=== PATIENT | male | born 1955 | race Caucasian/White ===

== ENCOUNTER 2017-01-24 22:00 | Emergency (ER) | payer MEDICAID, OTHER ==
[~2017-01-24] VITALS: Ht 182.9 cm; Wt 70.3 kg
[2017-01-24 22:00] VITALS: BP_SYST 150
[~2017-01-24 22:00] MED LIST: ACET-2165 GT; ALLO300T2 GT; AMAN100C16 GT; ASA81 GT; BACL10TA GT; COLL100 GT; DIPH25CA83 PO; LEVE500T13 GT; METO25TA6 GT; NA P118E RC; OMEP40CA33 GT
[2017-01-24] MEDS ORDERED: GASTROGRAFIN 120 ML ONE (22:39)
[2017-01-24] MEDS ORDERED: EPINEPHrine 1 MG/ML AMP ONE (22:39)
[2017-01-24 23:30] VITALS: BP_SYST 148
== END 2017-01-24 23:30 | disposition home or self-care (01) ==
LOC: SED 22:00
DX: Z43.1 Encounter for attention to gastrostomy (principal); J45.909 Unspecified asthma, uncomplicated; I10 Essential (primary) hypertension; M10.9 Gout, unspecified; Z86.73 Personal history of transient ischemic attack (TIA), and cerebral infarction without residual deficits; Z79.82 Long term (current) use of aspirin; Z79.899 Other long term (current) drug therapy
CPT/HCPCS: 43760; 74240; 99284; Q9963; J0171

== ENCOUNTER 2017-01-27 10:22 | Inpatient (IN) | payer OTHER ==
[~2017-01-27] VITALS: Ht 177.8 cm; Wt 95.3 kg
[~2017-01-27 10:22] MED LIST changes: +GLYCOPYRROLATE 0.2 MG/ML VIAL IJ ONE; +MIDAZOLAM HCL 5 MG/5 ML VIAL IVP ONE; +NEOSTIGMINE METHYLSULFATE 1 MG/ML, 10 ML VIAL IVP ONE; +ONDANSETRON HCL 4 MG/2 ML VIAL IVP ONE; +PROPOFOL 200MG/ 20ML VIAL (DIPRIVAN) IV ONE; +ROCURONIUM BROMIDE 10 MG/ML (ZEMURON) IV ONE; +SEVOFLURANE 15 MIN GAS INH ONE; +fentaNYL CITRATE/PF 100 MCG/2 ML AMP IVP ONE
[2017-01-27 10:25] VITALS: BP_SYST 153
[2017-01-27] MEDS ORDERED: ASCO500T20 PO (11:04)
[2017-01-27] MEDS ORDERED: MULT PO (11:04)
[2017-01-27] MEDS ORDERED: CLON0.5T4 PO (11:04)
[2017-01-27] MEDS ORDERED: PROT946L PO (11:04)
[2017-01-27] MEDS ORDERED: PANTOPRAZOLE SODIUM 40 MG in NS 50 ML IV SCH (11:15)
[2017-01-27] MEDS ORDERED: PANTOPRAZOLE SODIUM 80 MG in NS 100 ML IV ONE (11:15)
[2017-01-27] MEDS ORDERED: ONDANSETRON HCL 4 MG/2 ML VIAL IVP ONE (11:15)
[2017-01-27] MEDS ORDERED: NACL 0.9% 1,000 ML IV ONE ×3 (11:15→14:00)
[2017-01-27 11:39] LABS: CALCIUM 9.8 mg/dL (8.4-11.0); CREATININE 0.65 mg/dL (0.55-1.30); POTASSIUM 3.6 mmol/L (3.5-5.1)
[2017-01-27 11:41] LABS: BASOPHILS # (AUTO) 0.1 K/uL (0.0-0.2); BASOPHILS % (AUTO) 0.5 % (0.0-2.0); HEMATOCRIT 56.3 % (36-54); HEMOGLOBIN 17.9 g/dL (14.0-18.0); LYMPHOCYTES # (AUTO) 1.1 K/uL (1.0-5.5); LYMPHOCYTES % (AUTO) 5.4 % (20.5-51.5); MEAN CORPUSCULAR HEMOGLOBIN 29 pg (27-31); MEAN CORPUSCULAR HGB CONC 32 % (32-36); MEAN CORPUSCULAR VOLUME 92 fL (79.0-98.0); MONOCYTES % (AUTO) 4.7 % (1.7-9.3); NEUTROPHILS # (AUTO) 18.8 K/uL (1.8-7.7); NEUTROPHILS % (AUTO) 89.4 % (40.0-70.0); PLATELET COUNT (AUTO) 320 K/uL (130-430); RED BLOOD CELL COUNT(AUTO) 6.11 MIL/uL (4.2-6.2); RED CELL DISTRIBUTION WIDTH 15.1 % (9.0-15.0)
[2017-01-27 11:43] LABS: ALBUMIN 3.7 g/dL (3.4-4.8); INR 1.3 (0.80-1.20); TOTAL BILIRUBIN 0.4 mg/dL (0.0-1.0)
[2017-01-27] MEDS ORDERED: PIPERACILLIN/TAZO 3.375 GM in NS 50 ML IV ONE (14:00)
[2017-01-27 14:33] LABS: BILIRUBIN,URINE NEGATIVE (NEGATIVE); BLOOD, URINE NEGATIVE (NEGATIVE); CLARITY/URINE CLEAR (CLEAR); COLOR,URINE YELLOW (YELLOW); GLUCOSE,URINE NEGATIVE (NEGATIVE); KETONES,URINE NEGATIVE (NEGATIVE); LEUKOCYTE ESTERASE ,URINE NEGATIVE (NEGATIVE); NITRITE, URINE NEGATIVE (NEGATIVE); PROTEIN URINE TRACE (NEGATIVE)
[2017-01-27 14:44] LABS: BACTERIA,URINE FEW /HPF (None Seen); MUCUS,URINE 1+ /LPF (None Seen); RBC,URINE 0-3 /HPF (0-3); WBC,URINE 0-3 /HPF (0-3)
[2017-01-27] MEDS ORDERED: LORazepam 2 MG/ML VIAL IVP PRN (15:45)
[2017-01-27] MEDS ORDERED: ONDANSETRON HCL 4 MG/2 ML VIAL IVP PRN (15:45)
[2017-01-27] MEDS ORDERED: PIPERACILLIN/TAZOBACTAM 3.375 GM/VIAL (ZOSYN) IV ONE (15:45)
[2017-01-27] MEDS ORDERED: LevALBUTEROL HCL 1.25 MG/0.5 ML *CONC.* VIAL.NEB (XOPENEX CONC.) INH PRN (16:00)
[2017-01-27] MEDS ORDERED: LevALBUTEROL HCL 1.25 MG/0.5 ML *CONC.* VIAL.NEB (XOPENEX CONC.) INH ONE (16:30)
[2017-01-27 16:47] VITALS: BP_SYST 119
[2017-01-27] MEDS: POTASSIUM CHLORIDE 20 MEQ in D5/0.45 NS 1,000 ML IV SCH (17:00)
[2017-01-27 17:33] VITALS: BP_SYST 119
[2017-01-27 18:03] VITALS: BP_SYST 119
[2017-01-27] MEDS: metroNIDAZOLE 500 mg/NS 100 ML IV SCH (18:12)
[2017-01-27] MEDS: PIPERACILLIN/TAZO 3.375/DEX-IS 50 ML IV SCH (19:04)
[2017-01-27 20:00] VITALS: BP_SYST 123
[2017-01-27] MEDS: levETIRAcetam 500 MG in NS 100 ML IV SCH (21:44)
[2017-01-27] MEDS: PANTOPRAZOLE SODIUM 40 MG/VIAL (PROTONIX) IVP SCH (21:45)
[2017-01-27] MEDS: LevALBUTEROL HCL 1.25 MG/0.5 ML *CONC.* VIAL.NEB (XOPENEX CONC.) INH SCH (23:17)
[2017-01-28 00:05] VITALS: BP_SYST 140
[2017-01-28] MEDS: PIPERACILLIN/TAZO 3.375/DEX-IS 50 ML IV SCH ×4 (00:39→18:36)
[2017-01-28] MEDS: metroNIDAZOLE 500 mg/NS 100 ML IV SCH ×3 (01:44→17:21)
[2017-01-28] MEDS: POTASSIUM CHLORIDE 20 MEQ in D5/0.45 NS 1,000 ML IV SCH ×2 (02:06→12:34)
[2017-01-28 04:25] VITALS: BP_SYST 129
[2017-01-28 07:02] LABS: CALCIUM 8.8 mg/dL (8.4-11.0); CREATININE 0.78 mg/dL (0.55-1.30); POTASSIUM 3.5 mmol/L (3.5-5.1)
[2017-01-28 07:04] LABS: BASOPHILS % (AUTO) 0.4 % (0.0-2.0); EOSINOPHILS # (AUTO) 0.2 K/uL (0.0-0.4); EOSINOPHILS % (AUTO) 1.4 % (0.0-4.0); HEMATOCRIT 47.8 % (36-54); HEMOGLOBIN 14.7 g/dL (14.0-18.0); LYMPHOCYTES # (AUTO) 0.5 K/uL (1.0-5.5); LYMPHOCYTES % (AUTO) 4.6 % (20.5-51.5); MEAN CORPUSCULAR HEMOGLOBIN 29 pg (27-31); MEAN CORPUSCULAR HGB CONC 31 % (32-36); MEAN CORPUSCULAR VOLUME 93 fL (79.0-98.0); MONOCYTES # (AUTO) 0.7 K/uL (0.0-1.0); MONOCYTES % (AUTO) 5.8 % (1.7-9.3); NEUTROPHILS % (AUTO) 87.8 % (40.0-70.0); PLATELET COUNT (AUTO) 218 K/uL (130-430); RED BLOOD CELL COUNT(AUTO) 5.13 MIL/uL (4.2-6.2); RED CELL DISTRIBUTION WIDTH 15.1 % (9.0-15.0)
[2017-01-28 07:11] LABS: WHITE BLOOD COUNT (AUTO) 11.4 K/uL (4.8-10.8)
[2017-01-28] MEDS: LevALBUTEROL HCL 1.25 MG/0.5 ML *CONC.* VIAL.NEB (XOPENEX CONC.) INH SCH ×3 (07:20→23:37)
[2017-01-28 08:00] VITALS: BP_SYST 99
[2017-01-28] MEDS: levETIRAcetam 500 MG in NS 100 ML IV SCH ×2 (08:20→20:53)
[2017-01-28] MEDS: PANTOPRAZOLE SODIUM 40 MG/VIAL (PROTONIX) IVP SCH ×2 (08:21→20:53)
[2017-01-28 11:56] VITALS: BP_SYST 106
[2017-01-28 16:37] VITALS: BP_SYST 121
[2017-01-28 20:00] VITALS: BP_SYST 108
[2017-01-29] VITALS: BP_SYST 109
[2017-01-29] MEDS: PIPERACILLIN/TAZO 3.375/DEX-IS 50 ML IV SCH ×5 (00:57→23:48)
[2017-01-29] MEDS: metroNIDAZOLE 500 mg/NS 100 ML IV SCH ×3 (01:51→17:23)
[2017-01-29 04:29] VITALS: BP_SYST 104
[2017-01-29] MEDS: POTASSIUM CHLORIDE 20 MEQ in D5/0.45 NS 1,000 ML IV SCH ×2 (05:44→22:20)
[2017-01-29] MEDS: LevALBUTEROL HCL 1.25 MG/0.5 ML *CONC.* VIAL.NEB (XOPENEX CONC.) INH SCH ×3 (07:17→23:03)
[2017-01-29 08:20] VITALS: BP_SYST 115
[2017-01-29] MEDS: PANTOPRAZOLE SODIUM 40 MG/VIAL (PROTONIX) IVP SCH ×2 (08:24→21:34)
[2017-01-29] MEDS: levETIRAcetam 500 MG in NS 100 ML IV SCH ×2 (08:24→21:34)
[2017-01-29 11:32] VITALS: BP_SYST 131
[2017-01-29 15:27] VITALS: BP_SYST 131
[2017-01-29 20:00] VITALS: BP_SYST 134
[2017-01-29] MEDS: MUPIROCIN 2% TOPICAL OINTMENT 22 GM TP SCH (21:34)
[2017-01-30] VITALS (7 sets, daily range): BP systolic 94–147
[2017-01-30] MEDS: metroNIDAZOLE 500 mg/NS 100 ML IV SCH ×3 (00:55→16:58)
[2017-01-30] MEDS: PIPERACILLIN/TAZO 3.375/DEX-IS 50 ML IV SCH ×3 (05:47→17:00)
[2017-01-30 06:14] LABS: BASOPHILS # (AUTO) 0.1 K/uL (0.0-0.2); BASOPHILS % (AUTO) 1.8 % (0.0-2.0); EOSINOPHILS # (AUTO) 0.4 K/uL (0.0-0.4); EOSINOPHILS % (AUTO) 7.5 % (0.0-4.0); HEMATOCRIT 40.9 % (36-54); HEMOGLOBIN 13.2 g/dL (14.0-18.0); LYMPHOCYTES # (AUTO) 0.9 K/uL (1.0-5.5); LYMPHOCYTES % (AUTO) 14.9 % (20.5-51.5); MEAN CORPUSCULAR HEMOGLOBIN 30 pg (27-31); MEAN CORPUSCULAR HGB CONC 32 % (32-36); MEAN CORPUSCULAR VOLUME 92 fL (79.0-98.0); MONOCYTES # (AUTO) 0.7 K/uL (0.0-1.0); MONOCYTES % (AUTO) 11.9 % (1.7-9.3); NEUTROPHILS # (AUTO) 3.7 K/uL (1.8-7.7); NEUTROPHILS % (AUTO) 63.9 % (40.0-70.0); PLATELET COUNT (AUTO) 171 K/uL (130-430); RED BLOOD CELL COUNT(AUTO) 4.45 MIL/uL (4.2-6.2); RED CELL DISTRIBUTION WIDTH 15.3 % (9.0-15.0); WHITE BLOOD COUNT (AUTO) 5.8 K/uL (4.8-10.8)
[2017-01-30 06:21] LABS: CALCIUM 8.3 mg/dL (8.4-11.0); CREATININE 0.6 mg/dL (0.55-1.30); POTASSIUM 3.6 mmol/L (3.5-5.1)
[2017-01-30] MEDS: LevALBUTEROL HCL 1.25 MG/0.5 ML *CONC.* VIAL.NEB (XOPENEX CONC.) INH SCH ×2 (07:34→15:36)
[2017-01-30] MEDS: levETIRAcetam 500 MG in NS 100 ML IV SCH ×2 (09:17→21:07)
[2017-01-30] MEDS: PANTOPRAZOLE SODIUM 40 MG/VIAL (PROTONIX) IVP SCH ×2 (09:19→21:07)
[2017-01-30] MEDS: MUPIROCIN 2% TOPICAL OINTMENT 22 GM TP SCH ×2 (09:20→21:06)
[2017-01-30] MEDS: POTASSIUM CHLORIDE 20 MEQ in D5/0.45 NS 1,000 ML IV SCH (12:58)
[2017-01-31] MEDS: LevALBUTEROL HCL 1.25 MG/0.5 ML *CONC.* VIAL.NEB (XOPENEX CONC.) INH SCH ×4 (00:02→23:35)
[2017-01-31 00:12] VITALS: BP_SYST 126
[2017-01-31] MEDS: PIPERACILLIN/TAZO 3.375/DEX-IS 50 ML IV SCH ×4 (00:19→18:06)
[2017-01-31] MEDS: metroNIDAZOLE 500 mg/NS 100 ML IV SCH ×3 (01:03→16:58)
[2017-01-31 03:26] VITALS: BP_SYST 125
[2017-01-31] MEDS: POTASSIUM CHLORIDE 20 MEQ in D5/0.45 NS 1,000 ML IV SCH ×2 (05:30→18:05)
[2017-01-31 06:38] LABS: ALBUMIN 2.6 g/dL (3.4-4.8); CALCIUM 8.4 mg/dL (8.4-11.0); CREATININE 0.71 mg/dL (0.55-1.30); TOTAL BILIRUBIN 0.7 mg/dL (0.0-1.0)
[2017-01-31 07:04] LABS: BASOPHILS % (AUTO) 0.5 % (0.0-2.0); EOSINOPHILS # (AUTO) 0.4 K/uL (0.0-0.4); EOSINOPHILS % (AUTO) 7.2 % (0.0-4.0); HEMOGLOBIN 13.3 g/dL (14.0-18.0); LYMPHOCYTES # (AUTO) 0.8 K/uL (1.0-5.5); LYMPHOCYTES % (AUTO) 14.5 % (20.5-51.5); MEAN CORPUSCULAR HEMOGLOBIN 30 pg (27-31); MEAN CORPUSCULAR HGB CONC 33 % (32-36); MEAN CORPUSCULAR VOLUME 93 fL (79.0-98.0); MONOCYTES # (AUTO) 0.7 K/uL (0.0-1.0); NEUTROPHILS # (AUTO) 3.6 K/uL (1.8-7.7); PLATELET COUNT (AUTO) 172 K/uL (130-430); RED BLOOD CELL COUNT(AUTO) 4.43 MIL/uL (4.2-6.2); RED CELL DISTRIBUTION WIDTH 15.1 % (9.0-15.0); WHITE BLOOD COUNT (AUTO) 5.5 K/uL (4.8-10.8)
[2017-01-31 08:00] VITALS: BP_SYST 115
[2017-01-31] MEDS: levETIRAcetam 500 MG in NS 100 ML IV SCH ×2 (08:22→21:41)
[2017-01-31] MEDS: PANTOPRAZOLE SODIUM 40 MG/VIAL (PROTONIX) IVP SCH ×2 (08:22→21:42)
[2017-01-31 09:12] LABS: NEUTROPHILS % (AUTO) 65.8 % (40.0-70.0)
[2017-01-31] MEDS: MUPIROCIN 2% TOPICAL OINTMENT 22 GM TP SCH ×2 (09:31→21:43)
[2017-01-31 12:00] VITALS: BP_SYST 113
[2017-01-31] MEDS: ACETAMINOPHEN 325 MG TABLET GT PRN (14:27)
[2017-01-31 16:00] VITALS: BP_SYST 104
[2017-01-31 20:00] VITALS: BP_SYST 113
[2017-01-31] MEDS: CARBAMIDE PEROXIDE 6.5% EAR DROPS (DEBROX) OT SCH (21:42)
[2017-02-01] MEDS: PIPERACILLIN/TAZO 3.375/DEX-IS 50 ML IV SCH ×5 (00:18→23:31)
[2017-02-01 00:59] VITALS: BP_SYST 128
[2017-02-01] MEDS: metroNIDAZOLE 500 mg/NS 100 ML IV SCH ×3 (01:01→17:20)
[2017-02-01 04:25] VITALS: BP_SYST 141
[2017-02-01 06:27] LABS: BASOPHILS # (AUTO) 0.1 K/uL (0.0-0.2); BASOPHILS % (AUTO) 0.9 % (0.0-2.0); EOSINOPHILS # (AUTO) 0.4 K/uL (0.0-0.4); EOSINOPHILS % (AUTO) 6.1 % (0.0-4.0); HEMATOCRIT 40.8 % (36-54); LYMPHOCYTES # (AUTO) 1.1 K/uL (1.0-5.5); LYMPHOCYTES % (AUTO) 17.6 % (20.5-51.5); MEAN CORPUSCULAR HEMOGLOBIN 30 pg (27-31); MEAN CORPUSCULAR HGB CONC 32 % (32-36); MEAN CORPUSCULAR VOLUME 93 fL (79.0-98.0); MONOCYTES # (AUTO) 0.6 K/uL (0.0-1.0); MONOCYTES % (AUTO) 10.6 % (1.7-9.3); NEUTROPHILS # (AUTO) 3.8 K/uL (1.8-7.7); PLATELET COUNT (AUTO) 170 K/uL (130-430); RED BLOOD CELL COUNT(AUTO) 4.39 MIL/uL (4.2-6.2); RED CELL DISTRIBUTION WIDTH 15.5 % (9.0-15.0)
[2017-02-01 06:39] LABS: ALBUMIN 2.6 g/dL (3.4-4.8); CALCIUM 8.3 mg/dL (8.4-11.0); CREATININE 0.68 mg/dL (0.55-1.30); POTASSIUM 3.7 mmol/L (3.5-5.1); TOTAL BILIRUBIN 0.6 mg/dL (0.0-1.0)
[2017-02-01] MEDS: LevALBUTEROL HCL 1.25 MG/0.5 ML *CONC.* VIAL.NEB (XOPENEX CONC.) INH SCH ×3 (07:00→23:15)
[2017-02-01 07:30] VITALS: BP_SYST 134
[2017-02-01 07:46] LABS: NEUTROPHILS % (AUTO) 64.8 % (40.0-70.0)
[2017-02-01] MEDS ORDERED: LR 1,000 ML IV SCH (08:53)
[2017-02-01] MEDS ORDERED: HYDROmorphone 1 MG INJ. 1 MG/ML AMPUL IVP PRN (09:00)
[2017-02-01] MEDS ORDERED: MEPERIDINE HCL/PF 25 MG/ML DISP.SYRIN IVP PRN ×2 (09:00)
[2017-02-01] MEDS ORDERED: ONDANSETRON HCL 4 MG/2 ML VIAL IVP PRN ×2 (09:00→14:00)
[2017-02-01] MEDS ORDERED: HYDROmorphone 2 MG/ML VIAL IVP PRN ×2 (09:00)
[2017-02-01] MEDS: PANTOPRAZOLE SODIUM 40 MG/VIAL (PROTONIX) IVP SCH ×2 (11:12→21:30)
[2017-02-01] MEDS: POTASSIUM CHLORIDE 20 MEQ in D5/0.45 NS 1,000 ML IV SCH ×2 (11:12→11:24)
[2017-02-01] MEDS: CARBAMIDE PEROXIDE 6.5% EAR DROPS (DEBROX) OT SCH ×2 (11:14→21:30)
[2017-02-01] MEDS: MUPIROCIN 2% TOPICAL OINTMENT 22 GM TP SCH ×2 (11:15→21:30)
[2017-02-01 12:00] VITALS: BP_SYST 152
[2017-02-01] MEDS: levETIRAcetam 500 MG in NS 100 ML IV SCH ×2 (12:54→21:30)
[2017-02-01] MEDS ORDERED: MORPHINE 2 MG/ML INJ. SYRINGE IVP PRN (14:00)
[2017-02-01 16:00] VITALS: BP_SYST 146
[2017-02-02] VITALS (7 sets, daily range): BP systolic 104–121
[2017-02-02] MEDS: metroNIDAZOLE 500 mg/NS 100 ML IV SCH ×3 (00:16→16:51)
[2017-02-02] MEDS: POTASSIUM CHLORIDE 20 MEQ in D5/0.45 NS 1,000 ML IV SCH ×2 (05:33→16:47)
[2017-02-02] MEDS: PIPERACILLIN/TAZO 3.375/DEX-IS 50 ML IV SCH ×3 (05:34→17:46)
[2017-02-02 06:35] LABS: BASOPHILS % (AUTO) 0.4 % (0.0-2.0); EOSINOPHILS % (AUTO) 0.3 % (0.0-4.0); HEMATOCRIT 38.9 % (36-54); HEMOGLOBIN 12.7 g/dL (14.0-18.0); LYMPHOCYTES # (AUTO) 0.9 K/uL (1.0-5.5); LYMPHOCYTES % (AUTO) 10.9 % (20.5-51.5); MEAN CORPUSCULAR HEMOGLOBIN 30 pg (27-31); MEAN CORPUSCULAR HGB CONC 33 % (32-36); MEAN CORPUSCULAR VOLUME 93 fL (79.0-98.0); MONOCYTES # (AUTO) 0.8 K/uL (0.0-1.0); MONOCYTES % (AUTO) 9.7 % (1.7-9.3); NEUTROPHILS # (AUTO) 6.9 K/uL (1.8-7.7); NEUTROPHILS % (AUTO) 78.7 % (40.0-70.0); PLATELET COUNT (AUTO) 190 K/uL (130-430); RED CELL DISTRIBUTION WIDTH 15.3 % (9.0-15.0); WHITE BLOOD COUNT (AUTO) 8.6 K/uL (4.8-10.8)
[2017-02-02 06:41] LABS: ALBUMIN 2.3 g/dL (3.4-4.8); CREATININE 0.85 mg/dL (0.55-1.30); POTASSIUM 3.7 mmol/L (3.5-5.1); TOTAL BILIRUBIN 0.9 mg/dL (0.0-1.0)
[2017-02-02] MEDS: LevALBUTEROL HCL 1.25 MG/0.5 ML *CONC.* VIAL.NEB (XOPENEX CONC.) INH SCH ×3 (07:30→23:10)
[2017-02-02] MEDS: MUPIROCIN 2% TOPICAL OINTMENT 22 GM TP SCH ×2 (09:08→22:27)
[2017-02-02] MEDS: levETIRAcetam 500 MG in NS 100 ML IV SCH ×2 (09:08→22:26)
[2017-02-02] MEDS: CARBAMIDE PEROXIDE 6.5% EAR DROPS (DEBROX) OT SCH ×2 (09:08→22:27)
[2017-02-02] MEDS: PANTOPRAZOLE SODIUM 40 MG/VIAL (PROTONIX) IVP SCH ×2 (09:20→22:26)
[2017-02-03] MEDS: metroNIDAZOLE 500 mg/NS 100 ML IV SCH (00:04)
[2017-02-03] MEDS: PIPERACILLIN/TAZO 3.375/DEX-IS 50 ML IV SCH (00:06)
[2017-02-03 00:23] VITALS: BP_SYST 128
[2017-02-03] MEDS: POTASSIUM CHLORIDE 20 MEQ in D5/0.45 NS 1,000 ML IV SCH ×2 (02:12→06:58)
[2017-02-03 04:00] VITALS: BP_SYST 127
[2017-02-03 06:49] LABS: BASOPHILS % (AUTO) 0.7 % (0.0-2.0); EOSINOPHILS # (AUTO) 0.3 K/uL (0.0-0.4); EOSINOPHILS % (AUTO) 5.9 % (0.0-4.0); HEMATOCRIT 39.2 % (36-54); HEMOGLOBIN 12.6 g/dL (14.0-18.0); LYMPHOCYTES % (AUTO) 19.4 % (20.5-51.5); MEAN CORPUSCULAR HEMOGLOBIN 30 pg (27-31); MEAN CORPUSCULAR HGB CONC 32 % (32-36); MEAN CORPUSCULAR VOLUME 93 fL (79.0-98.0); MONOCYTES # (AUTO) 0.5 K/uL (0.0-1.0); MONOCYTES % (AUTO) 9.9 % (1.7-9.3); NEUTROPHILS # (AUTO) 3.2 K/uL (1.8-7.7); NEUTROPHILS % (AUTO) 64.1 % (40.0-70.0); PLATELET COUNT (AUTO) 202 K/uL (130-430); RED BLOOD CELL COUNT(AUTO) 4.22 MIL/uL (4.2-6.2); RED CELL DISTRIBUTION WIDTH 15.2 % (9.0-15.0)
[2017-02-03 07:08] LABS: ALBUMIN 2.6 g/dL (3.4-4.8); CALCIUM 7.9 mg/dL (8.4-11.0); CREATININE 0.64 mg/dL (0.55-1.30); POTASSIUM 3.8 mmol/L (3.5-5.1); TOTAL BILIRUBIN 0.5 mg/dL (0.0-1.0)
[2017-02-03] MEDS: LevALBUTEROL HCL 1.25 MG/0.5 ML *CONC.* VIAL.NEB (XOPENEX CONC.) INH SCH ×3 (07:46→23:08)
[2017-02-03 08:00] VITALS: BP_SYST 141
[2017-02-03] MEDS: levETIRAcetam 500 MG in NS 100 ML IV SCH ×2 (10:05→21:00)
[2017-02-03] MEDS: CARBAMIDE PEROXIDE 6.5% EAR DROPS (DEBROX) OT SCH ×2 (10:06→21:31)
[2017-02-03] MEDS: MUPIROCIN 2% TOPICAL OINTMENT 22 GM TP SCH ×2 (10:06→21:31)
[2017-02-03] MEDS: PANTOPRAZOLE SODIUM 40 MG/VIAL (PROTONIX) IVP SCH ×2 (10:06→21:31)
[2017-02-03] MEDS: ACETAMINOPHEN 325 MG TABLET GT PRN (12:40)
[2017-02-03 12:48] VITALS: BP_SYST 141
[2017-02-03 16:40] VITALS: BP_SYST 137
[2017-02-03 21:00] VITALS: BP_SYST 135
[2017-02-03] MEDS: levETIRAcetam 500 MG TABLET GT SCH (21:30)
[2017-02-04 00:25] VITALS: BP_SYST 129
[2017-02-04] MEDS: POTASSIUM CHLORIDE 20 MEQ in D5/0.45 NS 1,000 ML IV SCH (02:39)
[2017-02-04 04:31] VITALS: BP_SYST 137
[2017-02-04] MEDS: LevALBUTEROL HCL 1.25 MG/0.5 ML *CONC.* VIAL.NEB (XOPENEX CONC.) INH SCH (07:56)
[2017-02-04 08:00] VITALS: BP_SYST 133
[2017-02-04] MEDS ORDERED: PANTOPRAZOLE GRANULES PACKET 40 MG GT SCH (09:00)
[2017-02-04] MEDS: levETIRAcetam 500 MG TABLET GT SCH (09:26)
[2017-02-04] MEDS: MUPIROCIN 2% TOPICAL OINTMENT 22 GM TP SCH (09:26)
[2017-02-04] MEDS: CARBAMIDE PEROXIDE 6.5% EAR DROPS (DEBROX) OT SCH (09:27)
[2017-02-04 14:19] VITALS: BP_SYST 144
[2017-02-04 15:25] VITALS: BP_SYST 144
[2017-02-04 16:09] VITALS: BP_SYST 128
== END 2017-02-04 16:00 | DRG 853 ==
LOC: SED 10:22 → STU 14:39
PROVIDERS: ADMIT Family Medicine; ATTEND Family Medicine
PROC: 0FT44ZZ Resection of Gallbladder, Percutaneous Endoscopic Approach (ICD-10-PCS; principal; 2017-02-01 08:00)
DX: A41.9 Sepsis, unspecified organism (principal); G82.50 Quadriplegia, unspecified; G93.49 Other encephalopathy; K80.12 Calculus of gallbladder with acute and chronic cholecystitis without obstruction; G20 Parkinson's disease; F02.80 Dementia in other diseases classified elsewhere, unspecified severity, without behavioral disturbance, psychotic disturbance, mood disturbance, and anxiety; G40.909 Epilepsy, unspecified, not intractable, without status epilepticus; I10 Essential (primary) hypertension; Z86.73 Personal history of transient ischemic attack (TIA), and cerebral infarction without residual deficits; Z93.1 Gastrostomy status; Z79.899 Other long term (current) drug therapy; R09.02 Hypoxemia
CPT/HCPCS: 36415; 36600; 71010; 74230; 74240-TC; 76700-TC; 78226; 80048; 80053; 81000-TC; 82150-TC; 82803-TC; 82962; 83605; 83690-TC; 84484; 85025; 85610-TC; 86886; 86900; 86901; 87040-TC; 87070; 87081; 88304; 92610-GN; 92611-GN; 93005; 94640; 94760; 96361; 96365; 96367; 99285; A9537; C1727; C9113; J1953; J2060; J2250; J2270; J2405; J2543; J2704; J2710; J3010; J3480; J3490; J7030; J7120; Q9963

== ENCOUNTER 2017-10-20 19:36 | Emergency (ER) | payer OTHER, MEDICAID ==
[~2017-10-20] VITALS: Ht 162.6 cm; Wt 81.6 kg
[~2017-10-20 19:36] MED LIST changes: -AMAN100C16 GT; +ASCO500T20 PO; +CLON0.5T12 PO; -DIPH25CA83 PO; -GLYCOPYRROLATE 0.2 MG/ML VIAL IJ ONE; -LEVE500T13 GT; +LEVE500T9 GT; -MIDAZOLAM HCL 5 MG/5 ML VIAL IVP ONE; +MULT PO; -NEOSTIGMINE METHYLSULFATE 1 MG/ML, 10 ML VIAL IVP ONE; -ONDANSETRON HCL 4 MG/2 ML VIAL IVP ONE; -PROPOFOL 200MG/ 20ML VIAL (DIPRIVAN) IV ONE; +PROT946L PO; -ROCURONIUM BROMIDE 10 MG/ML (ZEMURON) IV ONE; -SEVOFLURANE 15 MIN GAS INH ONE; -fentaNYL CITRATE/PF 100 MCG/2 ML AMP IVP ONE
[2017-10-20 19:38] VITALS: BP_SYST 160
[2017-10-20] MEDS ORDERED: cloNIDine HCL 0.1 MG TABLET GT ONE (20:00)
[2017-10-20] MEDS ORDERED: GASTROGRAFIN 120 ML ONE (20:14)
[2017-10-20 21:40] VITALS: BP_SYST 141
== END 2017-10-20 21:40 | disposition home or self-care (01) ==
LOC: SED 19:36
DX: Z43.1 Encounter for attention to gastrostomy (principal)
CPT/HCPCS: 43760; 74240; 99284; Q9963

== ENCOUNTER 2018-03-27 09:06 | Emergency (ER) | payer OTHER, MEDICAID ==
[~2018-03-27] VITALS: Ht 172.7 cm; Wt 87.1 kg
[2018-03-27 09:06] VITALS: BP_SYST 146
[2018-03-27 10:15] VITALS: BP_SYST 146
== END 2018-03-27 10:15 | disposition home or self-care (01) ==
LOC: SED 09:06
DX: Z43.1 Encounter for attention to gastrostomy (principal)
CPT/HCPCS: 99284

== ENCOUNTER 2018-12-29 10:25 | Inpatient (IN) | payer MEDICAID, OTHER ==
[~2018-12-29] VITALS: Ht 172.7 cm; Wt 93.0 kg
[2018-12-29 10:25] VITALS: BP_SYST 161
[~2018-12-29 10:25] MED LIST changes: -ACET-2165 GT; -ALLO300T2 GT; -ASCO500T20 PO; -BACL10TA GT; +CLON0.5T12 GT; -CLON0.5T12 PO; -METO25TA6 GT; -MULT PO; -NA P118E RC; -OMEP40CA33 GT; +PROT54LI GT; -PROT946L PO
--- NOTE | 2018-12-29 10:27 | NUR ---
Patient to ER bed 6 to gown for evaluation. Side rails up. Report given to Joya CHAKRABORTY.
--- NOTE | 2018-12-29 10:33 | NUR ---
pt arrives from [facility]. Staff at the facility reports that he has become increasingly more lethatrgic. PT is nonverbal and opens his eyes only. The facilty does report attempting to feed him orally. Pt has a g-tube
[2018-12-29] MEDS ORDERED: hydrALAZINE HCL 20 MG/ML VIAL IVP ONE (10:45)
[2018-12-29] MEDS ORDERED: NACL 0.9% 1,000 ML IV ONE (10:45)
[2018-12-29] MEDS ORDERED: IPRATROPIUM/ALBUTEROL SULFATE 3 ML AMPUL.NEB (DUONEB) INH ONE (10:45)
--- NOTE | 2018-12-29 10:45 | NUR ---
# 20 gauge angiocath placed to left wrist. Use of asceptic technique. Opsite placed over site. Blood return noted. Blood for lab drawn from site. Flushed with 10 cc of normal saline. No evidence of infiltration noted. Patient tolerated well.
[2018-12-29 11:09] LABS: BASOPHILS # (AUTO) 0.1 K/uL (0.0-0.2); EOSINOPHILS # (AUTO) 1.4 K/uL (0.0-0.4); EOSINOPHILS % (AUTO) 16.7 % (0.0-4.0); LYMPHOCYTES # (AUTO) 2.1 K/uL (1.0-5.5); LYMPHOCYTES % (AUTO) 25.5 % (20.5-51.5); MEAN CORPUSCULAR HEMOGLOBIN 32 pg (27-31); MEAN CORPUSCULAR HGB CONC 33 % (32-36); MEAN CORPUSCULAR VOLUME 96 fL (79.0-98.0); MONOCYTES # (AUTO) 0.5 K/uL (0.0-1.0); MONOCYTES % (AUTO) 5.9 % (1.7-9.3); NEUTROPHILS # (AUTO) 4.2 K/uL (1.8-7.7); NEUTROPHILS % (AUTO) 50.9 % (40.0-70.0); PLATELET COUNT (AUTO) 166 K/uL (130-430); RED BLOOD CELL COUNT(AUTO) 3.74 MIL/uL (4.2-6.2); RED CELL DISTRIBUTION WIDTH 14.6 % (9.0-15.0); WHITE BLOOD COUNT (AUTO) 8.2 K/uL (4.8-10.8)
--- NOTE | 2018-12-29 11:10 | NUR ---
ua obtained via straight. Sample was sent to the lab
[2018-12-29 11:25] LABS: CALCIUM 8.5 mg/dL (8.4-11.0); CREATININE 1.26 mg/dL (0.55-1.30)
[2018-12-29 11:28] LABS: ALBUMIN 3.3 g/dL (3.4-4.8); TOTAL BILIRUBIN 0.5 mg/dL (0.0-1.0)
[2018-12-29 11:40] LABS: BILIRUBIN,URINE NEGATIVE (NEGATIVE); CLARITY/URINE CLEAR (CLEAR); COLOR,URINE YELLOW (YELLOW); GLUCOSE,URINE NEGATIVE (NEGATIVE); KETONES,URINE NEGATIVE (NEGATIVE); LEUKOCYTE ESTERASE ,URINE NEGATIVE (NEGATIVE); NITRITE, URINE NEGATIVE (NEGATIVE); PROTEIN URINE NEGATIVE (NEGATIVE); UROBILINOGEN,URINE 0.2 (0.2-1.0)
[2018-12-29 11:45] LABS: BLOOD, URINE TRACE (NEGATIVE)
[2018-12-29 11:51] LABS: BACTERIA,URINE RARE /HPF (None Seen); RBC,URINE 0-3 /HPF (0-3); WBC,URINE 0-3 /HPF (0-3)
[2018-12-29] MEDS ORDERED: ATII2 IM/IV (11:51)
[2018-12-29] MEDS ORDERED: ALBU2.5V7 INH (11:51)
[2018-12-29] MEDS ORDERED: BISA10SU61 RC (11:51)
[2018-12-29] MEDS ORDERED: FAMO-132 GT (11:51)
[2018-12-29] MEDS ORDERED: MOM PO (11:51)
[2018-12-29] MEDS ORDERED: ONDA4TAB5 PO (11:51)
[2018-12-29] MEDS ORDERED: ACET325T53 PO (11:51)
[2018-12-29] MEDS ORDERED: LACT10PA5 GT (11:51)
[2018-12-29] MEDS ORDERED: CLON0.5T12 GT (11:51)
--- NOTE | 2018-12-29 12:00 | NUR ---
Medication reconciliation completed with information provided by medical chart. Any prior medication reconciliation on file was reviewed and corrected.
[2018-12-29] MEDS ORDERED: PIPERACILLIN/TAZO 3.375 GM in NS 50 ML IV ONE (12:30)
[2018-12-29] MEDS ORDERED: PIPERACILLIN/TAZOBACTAM 3.375 GM/VIAL (ZOSYN) IV ONE (12:43)
[2018-12-29] MEDS ORDERED: KCL 20 mEq in D5/0.45NS 1000mL 1,000 ML IV ONE (13:00)
--- NOTE | 2018-12-29 13:13 | NUR ---
ADMISSION NOTE Received patient from ER via gurney. Patient admitted with diagnosis of Aspiration Pneumonia. Patient is awake but nonverbal. Patient oriented to hospital room, call light, toileting, pain management and safety-teach back done. Patient informed that that their room number is 108A. Personal belongings checked and Belongings List documented. Call light within reach. Vital signs on admission: BP: 152/78, Temp: 97.0, Pulse: 84, Respirations: 17, and Oxygen saturation: 94%.
--- NOTE | 2018-12-29 13:18 | NUR ---
Patient will be admitted to care of Dr. Coelho. Admitted to Med Surg unit. Will go to room 108-a. Belongings list completed. Summary report printed. Report given to Meaghan CHAKRABORTY. IV is on the rnight wrist 20g patent and infusing well.
--- NOTE | 2018-12-29 13:31 | NUR ---
ADMISSION NOTE Received patient from ER via [facility] with diagnosis of pna. Assisted to bed. patient is non verbal. O2 at 2 liters per nasal cannula, kept comfortable
[2018-12-29 13:37] VITALS: BP_SYST 152
[2018-12-29 14:00] VITALS: BP_SYST 152
[2018-12-29] MEDS ORDERED: PIPERACILLIN/TAZO 3.375/DEX-IS 50 ML IV ONE (14:00)
[2018-12-29] MEDS ORDERED: LISINOPRIL 10 MG TABLET (PRINIVIL) GT ONE (14:00)
[2018-12-29] MEDS ORDERED: LACTULOSE 20 GM/30 ML UDC GT ONE (14:00)
[2018-12-29] MEDS ORDERED: DOCUSATE SODIUM 100 MG/10 ML UDC GT PRN (14:00)
[2018-12-29] MEDS ORDERED: ACETAMINOPHEN 325 MG TABLET PO PRN (14:00)
[2018-12-29] MEDS ORDERED: BISACODYL 10 MG/SUPPOSITORY RC PRN (14:00)
[2018-12-29] MEDS ORDERED: ASPIRIN 81 MG TAB.CHEW GT ONE (14:00)
[2018-12-29] MEDS ORDERED: LORazepam 2 MG/ML VIAL IVP PRN (14:00)
[2018-12-29] MEDS ORDERED: MILK OF MAGNESIA 30 ML UDC PO PRN (14:00)
--- NOTE | 2018-12-29 14:39 | NUR ---
RN ROUNDS: PATIENT IS ASLEEP IN BED. NO SIGNS OF DISTRESS OR SHORTNESS OF BREATH NOTED. PATIENT TOLERATING OXYGEN AT 2L VIA NASAL CANNULA. PATIENT IN STABLE CONDITION. WILL CONTINUE TO MONITOR PATIENT FOR ANY CHANGES.
[2018-12-29] MEDS ORDERED: VANCOMYCIN HCL 2,000 MG in NS 500 ML IV ONE (15:00)
[2018-12-29 16:00] VITALS: BP_SYST 152
--- NOTE | 2018-12-29 16:20 | NUR ---
RN ROUNDS: PATIENT ASLEEP IN BED. NO SIGNS OF DISTRESS OR SHORTNESS OF BREATH NOTED. PATIENT IN STABLE CONDITION. WILL CONTINUE TO MONITOR PATIENT FOR ANY CHANGES.
--- NOTE | 2018-12-29 18:47 | NUR ---
CLOSING NOTES: PATIENT IS ASLEEP IN BED. NO SIGNS OF DISTRESS OR SHORTNESS OF BREATH NOTED. PATIENT IS TOLERATING OXYGEN VIA NASAL CANNULA AT 2L. G -TUBE IS INTACT WITH CLEAN, DRY DRESSING. IV SITE IS PATENT WITH NO SIGNS OF INFILTRATION AND RUNNING FLUIDS ORDERED. PATIENT IN STABLE CONDITION. SAFETY, FALL AND ASPIRATION PRECAUTIONS REMAINED THROUGHOUT THE SHIFT. BED LOCKED IN LOWEST POSITION WITH CALL LIGHT IN REACH. WILL ENDORSE PATIENT CARE TO ONCOMING COMBATANT DIVER OFFICER NURSE.
[2018-12-29 20:00] VITALS: BP_SYST 141
--- NOTE | 2018-12-29 20:00 | NUR ---
Pt was received lying in bed fully awake and non-verbal. No acute distress noted at this time. IV Vancomycin is infusing well via LFA without any signs of infiltration. G Tube is clamped and residual is 0ml. Fall, seizure and safety precautions are in place. Call light is with pt and bed alarm is on.
[2018-12-29] MEDS: PROTEIN HYDROLYSATE MILK GT SCH (21:00)
[2018-12-29] MEDS: clonazePAM 0.5 MG TABLET GT SCH (21:30)
[2018-12-29] MEDS: FAMOTIDINE 20 MG TABLET GT SCH (21:30)
[2018-12-29] MEDS: LevETIRAcetam 500 MG/5 ML UDC ORAL LIQUID GT SCH (21:30)
[2018-12-29] MEDS: ENOXAPARIN SODIUM 40 MG/0.4 ML SYRINGE SUBCUT SCH (21:37)
--- NOTE | 2018-12-29 22:00 | NUR ---
Pt remains awake and non-verbal. No acute distress noted. IVF is infusing well in LFA. Fall, seizure and safety precautions are in place.
[2018-12-29] MEDS: PIPERACILLIN/TAZO 3.375/DEX-IS 50 ML IV SCH (23:15)
--- NOTE | 2018-12-30 | NUR ---
GT Feeding and IVF are infusing well. Fall, seizure and safety precautions are in place.
--- NOTE | 2018-12-30 02:00 | NUR ---
Pt is sleeping without any distress and tolerating GT Feeding well. Fall, seizure and safety precautions are in place.
[2018-12-30 02:02] VITALS: BP_SYST 139
--- NOTE | 2018-12-30 04:00 | NUR ---
Pt is sleeping comfortably in bed and tolerating GT Feeding well. IVF is infusing well in LFA. Fall, seizure and safety precautions are in place.
[2018-12-30] MEDS: VANCOMYCIN HCL 1 GM/NS PREMIX 250 ML IV SCH ×2 (05:16→14:05)
--- NOTE | 2018-12-30 06:00 | NUR ---
Wound care performed as follows: 1) Left buttock with multiple skin tears and erythema. Small amount of pinkish drainage noted. No odor noted. Wound was cleansed with normal saline and pat dried. Foam dressing was applied. Addendum: 12/30/18 at 0734 by Ema Portillo RN Wound Care Continuation: 2) Right buttock with multiple skin tears and erythema. Small amount of pinkish drainage noted. No odor noted. Wound was cleansed with normal saline and pat dried. Foam dressing was applied. 3) Right Elbow with multiple skin tears and erythema. No drainage or odor noted. Site was cleansed with normal saline and pat dried. Non-adherent pad was applied followed by Leroy wrap dressing. Addendum: 12/30/18 at 0738 by Ema Portillo RN Wound Care Continuation: 4) Abdomen noted with erythema and scratches. No drainage or odor noted. Areas were washed with mild soap and water and then pat dried. Z guard applied. 6) G Tube site noted with erythema. No drainage or odor noted. Site was cleansed with normal saline, pat dried, followed by pre-cut drain sponge dressing.
[2018-12-30] MEDS: PIPERACILLIN/TAZO 3.375/DEX-IS 50 ML IV SCH ×4 (06:30→23:21)
--- NOTE | 2018-12-30 06:30 | NUR ---
Pt is resting quietly in bed. All pt's needs were attended to. Fall and safety precautions are in place. Will endorse to day shift nurse.
--- NOTE | 2018-12-30 07:50 | NUR ---
AM rounds: Patient is non verbal. Breathing is even, non-labored. IV fluids of D5 1/2 NS +20meq KCL at 75 cc/hr on the left forearm gauge 20, patent, no infiltration. Head of the bed elevated for aspiration precautions. GT feeding of Jevity 1.5 at 75 cc/hr via GT, no gastric residual noted, GT stoma with redness, no open skin, with minimal yellowish drainage noted .Rashes with erythema noted on the abdomen. Call light within reach,
[2018-12-30 08:00] VITALS: BP_SYST 148
--- NOTE | 2018-12-30 08:57 | NUR ---
Nutrition Update Pasquale Scale 11 noted. Pt admitted for aspiration pneumonia. Diet: Jevity 1.5 at 75 ml/hr, Emanuel BID, Free Water Flush: 200ml Q 6 hours via GT BMI: 31.3 kg/m2 RD to follow per nutrition care standards.
[2018-12-30] MEDS: PROTEIN HYDROLYSATE MILK GT SCH ×2 (09:00→21:00)
[2018-12-30] MEDS: FAMOTIDINE 20 MG TABLET GT SCH ×2 (09:18→20:11)
[2018-12-30] MEDS: ASPIRIN 81 MG TAB.CHEW GT SCH (09:18)
[2018-12-30] MEDS: LevETIRAcetam 500 MG/5 ML UDC ORAL LIQUID GT SCH ×2 (09:18→20:11)
[2018-12-30] MEDS: LISINOPRIL 10 MG TABLET (PRINIVIL) GT SCH (09:18)
[2018-12-30] MEDS: LACTULOSE 20 GM/30 ML UDC GT SCH (09:18)
[2018-12-30] MEDS: clonazePAM 0.5 MG TABLET GT SCH ×2 (09:18→20:11)
[2018-12-30] MEDS: ALBUTEROL SULFATE 0.083% 2.5 MG/3 ML VIAL.NEB INH PRN ×2 (10:08→14:19)
[2018-12-30 11:28] VITALS: BP_SYST 113
--- NOTE | 2018-12-30 11:30 | NUR ---
Rounds: No wheezing noted. Seizure precautions in place.
[2018-12-30 15:32] VITALS: BP_SYST 92
--- NOTE | 2018-12-30 15:49 | NUR ---
Dietitian Recommendations * Recommend Jevity 1.2 at 75 ml/hr, Emanuel BID, Free Water Flush: 200 ml Q6hrs via GT (ONS provided additional 180 kcal and 5 gm of protein/day) Provides: 2340 kcal/day, 105 gm of protein/day, 2253 ml free water/day. Meets: 103% of lower estimated caloric needs and 115% of lower end estimated protein needs. LP, RD Please refer to Nutrition Assessment for details. Signed: 12/30/18 at 1550 by Chen MARIE <Co-Signature Required> Co-Signed: 12/30/18 at [address] Addendum: 12/30/18 at 1550 by Chen MARIE Amended: Links added.
--- NOTE | 2018-12-30 18:06 | NUR ---
End of shift: Contact isolation for MRSA nares initiated. No change in assessment. Head of the bed elevated for aspiration precaution. Siderails are padded for seizure precautions.
--- NOTE | 2018-12-30 19:30 | NUR ---
PM ASSESSMENT REPORT RECEIVED FROM AM RN. PT RECEIVED IN BED WITH EYES OPEN, RESPONDING TO TACTILE STIMULATION. VSS, NO S/S OF ACUTE DISTRESS NOTED. PT ON 2L NC. LFA 20G INFUSING D5 1/2 NS WITH 20 MEQ KCL @ 75 CC/HR. G TUBE IN PLACE RUNNING JEVITY @ 75 CC/HR. NO S/S OF PAIN OR DISCOMFORT NOTED. HOB ELEVATED, BED IN LOWEST POSITION, CALL LIGHT IN REACH. WILL CONTINUE TO MONITOR PT.
[2018-12-30 20:00] VITALS: BP_SYST 115
[2018-12-30] MEDS: ENOXAPARIN SODIUM 40 MG/0.4 ML SYRINGE SUBCUT SCH (20:09)
[2018-12-30] MEDS: KCL 20 mEq in D5/0.45NS 1000mL 1,000 ML IV SCH (20:10)
[2018-12-30] MEDS: MUPIROCIN 2% TOPICAL OINTMENT 22 GM NS SCH (20:11)
--- NOTE | 2018-12-30 23:56 | NUR ---
RN ROUNDS PT RESTING COMFORTABLY IN BED WITH EYES CLOSED. BREATHING IS EVEN AND UNLABORED ON 2L NC. VSS, NO S/S OF ACUTE DISTRESS NOTED. WILL CONTINUE TO MONITOR PT.
[2018-12-31] MEDS: ALBUTEROL SULFATE 0.083% 2.5 MG/3 ML VIAL.NEB INH PRN (00:26)
[2018-12-31 01:12] VITALS: BP_SYST 118
[2018-12-31] MEDS: VANCOMYCIN HCL 1 GM/NS PREMIX 250 ML IV SCH (01:59)
--- NOTE | 2018-12-31 02:00 | NUR ---
WOUND CARE DRESSING CHANGED TO RFA AT THIS TIME. PT TOLERATED WELL. WILL CONTINUE TO MONITOR PT.
[2018-12-31] MEDS: PIPERACILLIN/TAZO 3.375/DEX-IS 50 ML IV SCH ×4 (05:07→23:28)
[2018-12-31 07:07] LABS: CALCIUM 7.9 mg/dL (8.4-11.0); CREATININE 1.53 mg/dL (0.55-1.30); POTASSIUM 4.2 mmol/L (3.5-5.1)
--- NOTE | 2018-12-31 07:15 | NUR ---
ENDORSEMENT BEDSIDE REPORT GIVEN TO AM RN USING SBAR APPROACH. NO S/S OF ACUTE DISTRESS NOTED. ALL PT NEEDS MET.
--- NOTE | 2018-12-31 07:46 | NUR ---
AM ROUNDS; Patient is non verbal. On o2 2 l/min via nasal cannula, breathing is even, non labored. On contact isolation for MRSA nares. GT feeding of Jevity at 75 cc/hr via GT, no gastric residual . Head of the bed is elevated , side rails are padded for seizure precautions. IV fluid of D5 1/2 NS + 20KCL at 75 cc/hr on the left forearm gauge 20. On low air loss mattress for low shonna score and existing wounds.
[2018-12-31 08:42] VITALS: BP_SYST 127
[2018-12-31] MEDS: KCL 20 mEq in D5/0.45NS 1000mL 1,000 ML IV SCH ×2 (08:44→23:27)
[2018-12-31] MEDS: MUPIROCIN 2% TOPICAL OINTMENT 22 GM NS SCH ×2 (08:45→21:48)
[2018-12-31] MEDS: LevETIRAcetam 500 MG/5 ML UDC ORAL LIQUID GT SCH ×2 (08:45→21:47)
[2018-12-31] MEDS: LACTULOSE 20 GM/30 ML UDC GT SCH (08:45)
[2018-12-31] MEDS: LISINOPRIL 10 MG TABLET (PRINIVIL) GT SCH (08:46)
[2018-12-31] MEDS: clonazePAM 0.5 MG TABLET GT SCH ×2 (08:46→21:47)
[2018-12-31] MEDS: FAMOTIDINE 20 MG TABLET GT SCH ×2 (08:46→21:47)
[2018-12-31] MEDS: ASPIRIN 81 MG TAB.CHEW GT SCH (08:46)
[2018-12-31] MEDS: PROTEIN HYDROLYSATE MILK GT SCH ×2 (09:00→21:00)
--- NOTE | 2018-12-31 11:47 | NUR ---
WOUND EVALUATION: Wound Consult received from Dr. Coelho. Thank you, Dr. Coelho, for the consult. Patient received in a Lakin Bed with an Isoflex NABILA mattress with low air loss therapy initiated, awake, nonverbal, nonresponsive to verbal commands. Patient is unable to turn in bed independently. Pasquale Score is an 11. Past Medical History: CVA, Seizure disorder, Chronic Encephalopathy, Dysphagia, G-tube placement. Recent Labs: WBC 8.2, RBC 3.74, hemoglobin 12.0, hematocrit 36.0, BUN 28, creatinine 1.53, GFR 49, glucose 138, calcium 7.9, albumin 3.3. Microbiology: Blood culture results 2 in progress. Urine culture results negative. MRSA screen results positive. Intrinsic factors that delay wound healing: CVA, Chronic Encephalopathy, Hypoalbuminemia. Extrinsic factors that delay wound healing: Immobility. Wound Assessment: 1. Left buttock: IAD with erythema and moisture associated skin damage. No odor, no drainage. Melani-site and surrounding tissue has blanchable red erythema. Site measures 1.0 cm x 0.5 cm. 2. Right buttock: IAD with erythema and moisture associated skin damage. No odor, no drainage. Melani-site and surrounding tissue has blanchable red erythema. Site measures 1.6 cm x 1.0 cm. Recommend: Cleanse sites with normal saline. Apply moisture barrier cream to sites. Cover with Sacral foam dressing. Perform site care daily, and as needed for dressing soiling or dislodgement. 3. Abdomen: Generalized rash with red erythema, right lower abdomen has two papules. Recommend: Cleanse involved areas with mild soap and water. Pat dry. Apply moisture barrier cream to involved areas. Follow up with Dr. Coelho for possible orders for application of hydrocortisone cream. 4. Left Second Toe, over Dorsal DIP Joint: Chronic ischemic wound, present on admission. Wound bed has 100% black eschar. No odor, no drainage. Dry, stable. Periwound intact. Wound measures 0.7 cm x 0.8 cm. 5. Left Second Toe, over Dorsal PIP Joint: Chronic ischemic wound, present on admission. Wound bed has 100% black eschar. No odor, no drainage. Dry, stable. Periwound intact. Wound measures 0.7 cm x 0.7 cm. 6. Left Medial Foot at 1st Metatarsal Head: Scar tissue from a wound of unknown etiology, present on admission. Site has a chronic wound bed with 100% black eschar. No odor, no drainage. Dry, stable. Periwound intact. Wound measures 0.3 cm x 0.2 cm. 7. Right Dorsal Foot at anterior/lateral joint line: Chronic wound, present on admission. Wound bed has 100% brown tissue. No odor, no drainage. Dry, stable. Periwound intact. Wound measures 0.4 cm x 0.4 cm. Recommend: Arlee involved areas with Betadine. Perform site care daily. Assess sites q shift. 8. Central Lower Abdomen: G-tube exit site. Site has erythema, present on admission. Recommend: Cleanse involved area with mild soap and water. Pat dry. Apply moisture barrier cream to involved area. Apply drain pad to involved area. Perform site care BID, and as needed for soiling. 9. Right Lateral Forearm: Skin tear, present on admission. Site has 100% red tissue. No odor, scant sanguineous drainage. Periwound intact. Site measures 0.5 cm x 0.5 cm. Recommend: Cleanse site with normal saline. Pat dry. Apply SurePrep to melani-tear. Cover with foam dressing. Perform site care daily, and as needed for dressing soiling or dislodgement. 10. Scrotum: Erythema from IAD, present on admission. Recommend: Cleanse involved area with mild soap and water. Pat dry. Place Interdry AG cloth undernerath Scrotum and pull Scrotum up off of bed by pulling Interdry AG cloth in between thighs. Apply antifungal powder to involved area. Perform site care BID, and as needed for soiling. Change Interdry AG cloth q five days, and as needed for soiling. Also recommend: Reposition patient [id number] only every 2 hours with pillow support, and off-load pressure areas with pillows for pressure re-distribution. Offload, elevate and float bilateral heels with one pillow lengthwise under each extremity at all times. Perform skin care and monitor skin integrity Q shift. Use moisture barrier cream on buttocks and other moisture susceptible areas QID and as needed for soiling. Maintain patient on a low air-loss mattress.
--- NOTE | 2018-12-31 11:50 | NUR ---
Rounds: Wound Evaluation done by Jigar.
[2018-12-31 12:18] VITALS: BP_SYST 113
[2018-12-31] MEDS ORDERED: NYSTATIN 15 GM TOPICAL POWDER TP ONE (12:45)
--- NOTE | 2018-12-31 16:30 | NUR ---
MD rounds: Dr. meehan is aware of abdominal rashes. no new orders.
[2018-12-31 16:47] VITALS: BP_SYST 123
--- NOTE | 2018-12-31 18:08 | NUR ---
End of shift: Needs attended. No change in assessment.
[2018-12-31 20:00] VITALS: BP_SYST 128
--- NOTE | 2018-12-31 20:00 | NUR ---
Pt was received lying in bed fully awake and non-verbal. No acute distress noted at this time. IVF of of D5 1/2NS + 20meq KCL is infusing well in LFA at 75ml/hr without any signs of infiltration. G Tube Feeding of Jevity 1.2 is infusing well at 75ml/hr and G Tube residual is 0ml. HOB is elevated 45 degrees to prevent aspiration. Fall, contact isolation, seizure and safety precautions are in place. Call light is with pt and bed alarm is on. Bed is in the lowest and locked positions.
[2018-12-31] MEDS: NYSTATIN 15 GM TOPICAL POWDER TP SCH (21:48)
[2018-12-31] MEDS: ENOXAPARIN SODIUM 40 MG/0.4 ML SYRINGE SUBCUT SCH (21:53)
--- NOTE | 2018-12-31 22:00 | NUR ---
No acute distress noted at this time. Pt is tolerating G Tube feeding well. IVF is infusing well in LFA. Fall, isolation, seizure and safety precautions are in place.
--- NOTE | 2019-01-01 | NUR ---
Pt is resting quietly in bed. IVF and GT feeding are infusing well. No seizure activity noted at this time.
[2019-01-01 00:40] VITALS: BP_SYST 123
--- NOTE | 2019-01-01 02:00 | NUR ---
No acute distress noted at this time. IVF is infusing well in LFA. Pt is tolerating GT Feeding well. Call light is with pt and bed alarm is on.
--- NOTE | 2019-01-01 04:00 | NUR ---
Pt is sleeping comfortably in bed. No seizure activity noted. IVF and GTF are infusing well. Fall, seizure, isolation and safety precautions are in place.
[2019-01-01] MEDS: PIPERACILLIN/TAZO 3.375/DEX-IS 50 ML IV SCH ×3 (05:40→18:05)
--- NOTE | 2019-01-01 06:00 | NUR ---
Pt is resting in bed without any distress noted. All pt's needs were attended to. No seizure activity noted this shift. IVF and GTF are infusing well. Will endorse to day shift nurse.
--- NOTE | 2019-01-01 07:40 | NUR ---
AM ROUNDS: PATIENT WAS POSITIONED ON WITH PILLOWS ON HIS RIGHT SIDE.CONTRACTED BOTH UPPER AND LOWER EXTREMITIES. TUBE FEED ON GOING. IVF AT LEFT ARM ON GOING.ON O2 2L/NC,GOOD SATURATION. BED LOCKED AT LOWEST POSITION. NO ACUTE DISTRESS.
[2019-01-01] MEDS: PROTEIN HYDROLYSATE MILK GT SCH ×2 (09:00→21:00)
[2019-01-01] MEDS: ASPIRIN 81 MG TAB.CHEW GT SCH (09:12)
[2019-01-01] MEDS: MUPIROCIN 2% TOPICAL OINTMENT 22 GM NS SCH ×2 (09:12→21:21)
[2019-01-01] MEDS: FAMOTIDINE 20 MG TABLET GT SCH ×2 (09:12→21:20)
[2019-01-01] MEDS: LACTULOSE 20 GM/30 ML UDC GT SCH (09:13)
[2019-01-01] MEDS: LISINOPRIL 10 MG TABLET (PRINIVIL) GT SCH (09:13)
[2019-01-01] MEDS: clonazePAM 0.5 MG TABLET GT SCH ×2 (09:13→21:20)
[2019-01-01] MEDS: LevETIRAcetam 500 MG/5 ML UDC ORAL LIQUID GT SCH ×2 (09:13→21:22)
[2019-01-01] MEDS: NYSTATIN 15 GM TOPICAL POWDER TP SCH ×2 (09:15→21:21)
[2019-01-01 09:18] VITALS: BP_SYST 141
[2019-01-01] MEDS ORDERED: COMMUNICATION ORDER XX ONE (10:00)
--- NOTE | 2019-01-01 10:06 | NUR ---
MD PAGED: SPOKE WITH DR FARRELL AND INFORMED HIM PATIENT WITH WHEEZING,BREATHING TREATMENT ALREADY RENDERED BY RT,STILL WHEZZING,WITH ORDERS GIVE SOLU MEDROL 60MG IV FIRST DOSE NOW THEN EVERY 6HOURS.
[2019-01-01] MEDS ORDERED: methylPREDNISolone SOD SUCC/PF 62.5 MG/ML VIAL IVP ONE (10:15)
--- NOTE | 2019-01-01 10:23 | NUR ---
Solumedrol iv: Solumedrol 60mg iv given first dose now as ordered.No problem.
--- NOTE | 2019-01-01 10:24 | NUR ---
CXR: Portable chest x-ray taken by template reproduction technician.
--- NOTE | 2019-01-01 12:00 | NUR ---
RN ROUNDS: PATIENT MUCH BETTER THIS TIME. NO AUDIBLE WHEEZING HEARD THIS TIME. CONTINUE TO MONITOR.
[2019-01-01] MEDS: methylPREDNISolone SOD SUCC/PF 62.5 MG/ML VIAL IVP SCH ×2 (12:02→18:05)
[2019-01-01 12:19] VITALS: BP_SYST 108
--- NOTE | 2019-01-01 14:10 | NUR ---
RN ROUNDS: NO AUDIBLE WHEEZING NOTED DURING ROUNDS. PATIENT RESTING. TUBE FEEDS ON GOING. NO DISTRESS.
--- NOTE | 2019-01-01 16:37 | NUR ---
RN ROUNDS: NO ACUTE DISTRESS. CONDITION GUARDED.
[2019-01-01 16:42] VITALS: BP_SYST 126
[2019-01-01] MEDS: NORMAL SALINE 5 ML DISP.SYRIN IVF SCH ×2 (16:57→21:22)
[2019-01-01] MEDS ORDERED: VANCOMYCIN HCL 1,000 MG in NS 250 ML IV SCH (17:00)
--- NOTE | 2019-01-01 18:37 | NUR ---
CLOSING NOTES: NO AUDIBLE WHEEZING NOTED. 02 2L/NC,GOOD SATURATION.DR FARRELL JUST SAW THE PATIENT. NO NEW ORDERS MADE. TUBE FEEDS ON GOING. IV VANCOMYCIN ON GOING.PRACTICE GUIDELINES MET THROUGH THE SHIFT.SAFETY MEASURES RENDERED.
--- NOTE | 2019-01-01 19:18 | NUR ---
OPENING NOTE RECEIVED CARE OF PT AND SBAR REPORT. PT RECEIVED IN BED WITH EYES CLOSED, RESPONDING TO TACTILE STIMULATION. VSS, NO S/S OF ACUTE DISTRESS NOTED. PT ON 2L NC, BREATHING IS EVEN AND UNLABORED. LFA 20G INFUSING ANTIBIOTIC AT THIS TIME. G TUBE IN PLACE RUNNING JEVITY @ 75 CC/HR. NO S/S OF PAIN OR DISCOMFORT NOTED. HOB ELEVATED, ASPIRATION PRECAUTIONS ARE IN PLACE. SEIZURE PADS ARE ON BEDSIDE. SAFETY PRECAUTIONS ARE IN PLACE: BED IS LOCKED IN LOWEST POSITION, CALL LIGHT WITH PT, SIDE RAIL UP X3, BED ALARM ON. WILL CONTINUE TO MONITOR.
[2019-01-01 20:00] VITALS: BP_SYST 122
[2019-01-01] MEDS: ENOXAPARIN SODIUM 40 MG/0.4 ML SYRINGE SUBCUT SCH (21:21)
--- NOTE | 2019-01-01 21:22 | NUR ---
MED PASS SCHEDULED MEDICATIONS GIVEN ORDERED. GTUBE IS INTACT AND FLUSHING WELL, 0 RESIDUAL NOTED. PT TOLERATED WELL. NO S/S OF DISTRESS. SAFETY, ASPIRATION, CONTACT, AND SEIZURE PRECAUTIONS MAINTAINED. WILL MONITOR.
--- NOTE | 2019-01-01 22:28 | NUR ---
CLEANED/REPOSITIONED PT INCONTINENT OF URINE. INCONTINENCE CARE RENDERED. PT REPOSITIONED WITH PILLOW SUPPORT. NO S/S OF DISTRESS, PT TOLERATED WELL. BREATHING IS EVEN AND UNLABORED TO O2 VIA NC AT 2L. SAFETY,ASPIRATION, SEIZURE, AND CONTACT PRECAUTIONS OBSERVED. WILL MONITOR.
--- NOTE | 2019-01-01 23:30 | NUR ---
NEW IV PLACEMENT: # 22 gauge angiocath placed to LEFT AC. Use of asceptic technique. Opsite placed over site. Blood return noted. Flushed with 10 cc of normal saline. No evidence of infiltration noted. Patient tolerated WELL.
[2019-01-02 00:16] VITALS: BP_SYST 128
[2019-01-02] MEDS: methylPREDNISolone SOD SUCC/PF 62.5 MG/ML VIAL IVP SCH ×4 (00:24→18:20)
[2019-01-02] MEDS: PIPERACILLIN/TAZO 3.375/DEX-IS 50 ML IV SCH ×4 (00:24→18:13)
--- NOTE | 2019-01-02 00:24 | NUR ---
SCHEDULED ZOSYN/SOLU-MEDROL PT GIVEN SCHEDULED ZOSYN VIA IVPB AND SCHEDULED SOLU-MEDROL IVP ORDERED. PT TOLERATED WELL. NO S/S OF ADVERSE REACTION NOTED. SAFETY, CONTACT, SEIZURE, AND ASPIRATION PRECAUTIONS ARE IN PLACE. VSS. WILL MONITOR.
--- NOTE | 2019-01-02 02:25 | NUR ---
RN NOTE PT RESTING IN BED, NO S/S OF ACUTE DISTRESS, BREATHING IS EVEN AND UNLABORED TO O2 VIA NC AT 2L. SKIN IS WARM AND DRY TO TOUCH. TUBE FEEDING IS RUNNING AT ORDERED RATE. SAFETY, ASPIRATION, SEIZURE AND CONTACT PRECAUTIONS MAINTAINED. WILL MONITOR.
[2019-01-02] MEDS: NORMAL SALINE 5 ML DISP.SYRIN IVF SCH ×3 (05:10→21:42)
--- NOTE | 2019-01-02 05:10 | NUR ---
RN NOTE: PT CLEANED AND REPOSITIONED FOR COMFORT WITH PILLOW SUPPORT. WOUND CARE RENDERED. SCHEDULED ZOSYN AND SOLU-MEDROL ADMINISTERED. TUBE FEEDING BAG CHANGED. SAFETY, ASPIRATION, CONTACT AND SEIZURE PRECAUTIONS REMAIN IN PLACE. WILL MONITOR.
--- NOTE | 2019-01-02 07:17 | NUR ---
sbar report received at this time. patient aphasic. both eyes closed. just moans. has oxygen of 2lnc. breathing even and unlabored. lungs bilaterally diminished at the bases. abdomen soft and non distended. with gastrostomy tube in placed with Jevity 1.5 at 75cc/hr infusing on well. has iv access at the left ac #20. saline lock. bed in low position, alarmed and locked. call lights within reach. continue to monitor patients status.
[2019-01-02 08:37] VITALS: BP_SYST 128
[2019-01-02 08:43] VITALS: BP_SYST 123
[2019-01-02] MEDS: FAMOTIDINE 20 MG TABLET GT SCH ×2 (09:00→21:44)
--- NOTE | 2019-01-02 09:00 | NUR ---
repositioned and turn to sides. dressing on the rt elbow still dry/intact.
[2019-01-02] MEDS: LACTULOSE 20 GM/30 ML UDC GT SCH (10:26)
[2019-01-02] MEDS: LevETIRAcetam 500 MG/5 ML UDC ORAL LIQUID GT SCH ×2 (10:26→21:43)
[2019-01-02] MEDS: MUPIROCIN 2% TOPICAL OINTMENT 22 GM NS SCH ×2 (10:26→21:47)
[2019-01-02] MEDS: ASPIRIN 81 MG TAB.CHEW GT SCH (10:27)
[2019-01-02] MEDS: LISINOPRIL 10 MG TABLET (PRINIVIL) GT SCH (10:27)
[2019-01-02] MEDS: clonazePAM 0.5 MG TABLET GT SCH ×2 (10:27→21:42)
[2019-01-02] MEDS: NYSTATIN 15 GM TOPICAL POWDER TP SCH ×2 (10:28→21:46)
--- NOTE | 2019-01-02 10:33 | NUR ---
due medication given via g tube. no residual noted.
--- NOTE | 2019-01-02 12:00 | NUR ---
has g tube in placed and flush water 200cc every 6 hours
[2019-01-02 12:38] VITALS: BP_SYST 123
--- NOTE | 2019-01-02 14:00 | NUR ---
pericare done and repositioned to sides. on low air mattress noted.
--- NOTE | 2019-01-02 15:30 | NUR ---
due medication given at this time. via iv.
--- NOTE | 2019-01-02 16:21 | NUR ---
dr aguilar came and see the patient.
[2019-01-02 16:30] VITALS: BP_SYST 137
[2019-01-02] MEDS: ALBUTEROL SULFATE 0.083% 2.5 MG/3 ML VIAL.NEB INH PRN (17:53)
--- NOTE | 2019-01-02 18:21 | NUR ---
solumedrol 60 mg iv and iv antibiotic given
--- NOTE | 2019-01-02 19:20 | NUR ---
endorsed to incoming nurse Teo CHAKRABORTY
[2019-01-02 20:22] VITALS: BP_SYST 135
[2019-01-02] MEDS: ENOXAPARIN SODIUM 40 MG/0.4 ML SYRINGE SUBCUT SCH (21:45)
--- NOTE | 2019-01-02 22:15 | NUR ---
SEIZURE PRECAUTIONS implemented SIDE RAILS PADDED frequent visual monitor for safety .
[2019-01-03] VITALS: BP_SYST 135
--- NOTE | 2019-01-03 | NUR ---
Hourly Rounding patient awake on and off HOB elevated TUBE FEEDING tolerating @ ordered Rate chest movement symmetrical unlabored .
[2019-01-03] MEDS: methylPREDNISolone SOD SUCC/PF 62.5 MG/ML VIAL IVP SCH ×5 (01:15→23:13)
[2019-01-03] MEDS: PIPERACILLIN/TAZO 3.375/DEX-IS 50 ML IV SCH ×5 (01:15→23:13)
--- NOTE | 2019-01-03 03:51 | NUR ---
Reposition & Turning off loading with pillows contractures are noted to extremities comfort measures implemented kept clean & dry .
--- NOTE | 2019-01-03 03:55 | NUR ---
ZOSYN 3.375 GM IVPB administer as ordered no ADVERSE Reaction noted no HIVES no acute distress noted .
--- NOTE | 2019-01-03 04:27 | NUR ---
WOUND CARE implemented to left & Right buttocks as ordered patient kept clean & dry incontinent of urine & stool , procedure tolerated .
[2019-01-03 06:22] LABS: CALCIUM 8.5 mg/dL (8.4-11.0); CREATININE 1.42 mg/dL (0.55-1.30); POTASSIUM 4.5 mmol/L (3.5-5.1); VANCOMYCIN,RANDOM 10.9 ug/mL
[2019-01-03] MEDS: NORMAL SALINE 5 ML DISP.SYRIN IVF SCH ×3 (06:32→20:30)
--- NOTE | 2019-01-03 07:20 | NUR ---
sbar report received at the bedside. patient aphasic. awake at times open his eyes. breathing even and unlabored. lungs bilaterally with crackles/wheezes. call respiratory therapist. vitals signs stable. afebrile. bed in low position, alarmed and locked. call lights within reach. on low air mattress. has iv access on the left ac #20.saline lock. has gastrostomy tube in placed with jevity 1.2 at 75cc/hr infusing on well. hourly rounding. on seizure precaution noted.
[2019-01-03 07:57] VITALS: BP_SYST 153
--- NOTE | 2019-01-03 08:00 | NUR ---
turn and repositioned. made comfortable.
--- NOTE | 2019-01-03 10:00 | NUR ---
due medication given by crushing via g tube.
[2019-01-03] MEDS: LACTULOSE 20 GM/30 ML UDC GT SCH (10:08)
[2019-01-03] MEDS: FAMOTIDINE 20 MG TABLET GT SCH ×2 (10:08→20:29)
[2019-01-03] MEDS: MUPIROCIN 2% TOPICAL OINTMENT 22 GM NS SCH ×2 (10:08→20:29)
[2019-01-03] MEDS: ASPIRIN 81 MG TAB.CHEW GT SCH (10:08)
[2019-01-03] MEDS: clonazePAM 0.5 MG TABLET GT SCH ×2 (10:08→20:29)
[2019-01-03] MEDS: NYSTATIN 15 GM TOPICAL POWDER TP SCH ×2 (10:09→20:28)
[2019-01-03] MEDS: LISINOPRIL 10 MG TABLET (PRINIVIL) GT SCH (10:09)
--- NOTE | 2019-01-03 12:00 | NUR ---
zozyn iv antibiotic given. made comfortable
[2019-01-03] MEDS: LevETIRAcetam 500 MG/5 ML UDC ORAL LIQUID GT SCH ×2 (12:09→20:29)
[2019-01-03 12:30] VITALS: BP_SYST 150
--- NOTE | 2019-01-03 13:00 | NUR ---
vancomycin iv given
[2019-01-03] MEDS: ALBUTEROL SULFATE 0.083% 2.5 MG/3 ML VIAL.NEB INH PRN (13:42)
--- NOTE | 2019-01-03 15:02 | NUR ---
dressing done at the right elbow. cleanse normal saline. covered with foam dressing on it.
--- NOTE | 2019-01-03 16:00 | NUR ---
DRESSING DONE AT THE G TUBE SITE. CLEANSE WITH NORMAL SALINE. APPLY BARRIER CREAM ON IT. DRIED CRUST BLACKISH NOTED.
[2019-01-03 16:30] VITALS: BP_SYST 109
[2019-01-03] MEDS ORDERED: HYDROCORTISONE 1%, 28.35 GM TOPICAL CREAM TP PRN (16:45)
--- NOTE | 2019-01-03 17:04 | NUR ---
turn to sides and repositioned with pillows. off loading both feet. dressing on the buttocks changed and cleanse with normal saline and apply barrier cream on it. covered with foam dressing. the surrounding areas redness noted. apply barrier cream on it.
[2019-01-03] MEDS: VANCOMYCIN HCL 1,000 MG in NS 250 ML IV SCH (17:55)
--- NOTE | 2019-01-03 18:00 | NUR ---
DUE ANTIBIOTIC DONE.
--- NOTE | 2019-01-03 18:13 | NUR ---
Nutrition F/U RD reviewed pt's current EMR record including diet Hx, physician notes, nursing notes, pertinent labs/meds/procedures, care trends, and care activity. Current Diet Order: Jevity 1.5 (Jevity 1.2) at 75 ml/hr, Emanuel BID, Free Water Flush: 200 ml Q 6 hours via GT x4 days Subjective Info: Pt seen resting in bed, +aphasic, w/ COVERED BUCKLE ASSEMBLER and student at bedside providing care. TF was seen infusing as per physician order. Per EMR, pt has been tolerating TF well, no residuals. Skin Integrity Comment: Pasquale Scale: 13; per Otr Owner Operator note 12/31/18 1. Left buttock: IAD with erythema and moisture associated skin damage. 2. Right buttock:IAD with erythema and moisture associated skin damage. 3. Abdomen: Generalized rash with red erythema, right lower abdomen has two papules. 4. Left Second Toe, over Dorsal DIP Joint: Chronic ischemic wound, present on admission. 5. Left Second Toe, over Dorsal PIP Joint: Chronic ischemic wound, present on admission. 6. Left Medial Foot at 1st Metatarsal Head: Scar tissue from a wound of unknown etiology, present on admission. 7. Right Dorsal Foot at anterior/lateral joint line: Chronic wound, present on admission. 8. Central Lower Abdomen: G-tube exit site. Site has erythema, present on admission. 9. Right Lateral Forearm: Skin tear, present on admission. 10. Scrotum: Erythema from IAD, present on admission. Estimated Energy Expenditure (kcals/day) 6936-3208 kcal/day (30-35 kcal/kg ABW for pneumonia/ wound healing) Estimated Protein Required (g/day) 91-114 gm/day (1.2-1.5 gm/kg ABW for pneumonia and wound healing) Estimated Fluid Required (l/day) 2.3-2.7 L/day (1 ml/kcal/day for adult maintenance) Problem/Etiology/Signs/Symptoms Increased nutritional needs related to metabolic demands as evidenced by estimated nutritional needs for pneumonia and wound healing. *ongoing Expected Outcomes/Goals - Monitor EN tolerance w/ goals of pt meeting greater than 85% of estimated nutritional needs, labs trending WML, and skin integrity/wt maintenance. Dietitian Recommendations * Recommend continuing Jevity 1.5 (Jevity 1.2) at 75 ml/hr, Emanuel BID, Free Water Flush: 200 ml Q 6 hours via GT (ONS provided additional 180 kcal and 5 gm of protein/day) Provides: 2340 kcal/day, 105 gm of protein/day, 2253 ml free water/day. Meets: 103% of lower estimated caloric needs and 115% of lower end estimated protein needs. Follow Up High Risk: F/U in 2-3 days
--- NOTE | 2019-01-03 18:55 | NUR ---
due medication of iv antibiotic given. hob elevated at 30 degrees. made comfortable. endorsed to incoming nurse Mone CHAKRABORTY
--- NOTE | 2019-01-03 19:10 | NUR ---
OPENING NOTE RECEIVED CARE OF PT AND SBAR REPORT FROM PALMER VIEIRA. PT RECEIVED IN BED WITH EYES CLOSED, RESPONDING TO TACTILE STIMULATION, NO SIGN OF PAIN OR DISCOMFORT. VSS, NO S/S OF ACUTE DISTRESS NOTED. PT ON 2L NC, BREATHING IS EVEN AND UNLABORED. LFA 20G IS SALINE LOCKED. G TUBE IN PLACE RUNNING JEVITY @ 75 CC/HR. HOB ELEVATED, ASPIRATION PRECAUTIONS ARE IN PLACE. SEIZURE PADS ARE ON BEDSIDE. SAFETY PRECAUTIONS ARE IN PLACE: BED IS LOCKED IN LOWEST POSITION, CALL LIGHT WITH PT, SIDE RAIL UP X3, BED ALARM ON. CONTACT ISOLATION MAINTAINED. WILL CONTINUE TO MONITOR.
[2019-01-03 20:00] VITALS: BP_SYST 155
[2019-01-03] MEDS: ENOXAPARIN SODIUM 40 MG/0.4 ML SYRINGE SUBCUT SCH (20:30)
--- NOTE | 2019-01-03 20:30 | NUR ---
MEDICATION PASS SCHEDULED MEDICATIONS GIVEN ORDERED. GTUBE IS INTACT AND FLUSHING WELL, WITH NO RESIDUAL NOTED. PT TOLERATED WELL WITH NO S/S OF DISTRESS. SAFETY, ASPIRATION, CONTACT, AND SEIZURE PRECAUTIONS MAINTAINED. WILL MONITOR.
--- NOTE | 2019-01-03 22:02 | NUR ---
REPOSITIONED PT REPOSITIONED IN BED FOR COMFORT WITH PILLOW SUPPORT IN PLACE. PT TOLERATED WELL. SAFETY, CONTACT, SEIZURE, AND ASPIRATION PRECAUTIONS MAINTAINED. WILL MONITOR.
--- NOTE | 2019-01-03 23:13 | NUR ---
SCHEDULED ZOSYN/SOLU-MEDROL SCHEDULED ZOSYN AND SOLU-MEDROL ADMINISTERED ORDERED. PT TOLERATED WELL. NO S/S OF ADVERSE REACTION NOTED. SAFETY, CONTACT, SEIZURE, AND ASPIRATION PRECAUTIONS ARE IN PLACE. VSS. PT RESTING IN BED WITH EYES CLOSED. VISIBLE RISE AND FALL OF CHEST TO O2 VIA NC AT 2L, BREATHING IS UNLABORED. WILL MONITOR.
[2019-01-04] VITALS: BP_SYST 141
--- NOTE | 2019-01-04 03:30 | NUR ---
RN NOTE: PT NOTED TO HAVE TAKEN OFF HIS OXYGEN. NASAL CANNULA REAPPLIED. PT REPOSITIONED FOR COMFORT. NO S/S OF ACUTE DISTRESS. SAFETY, ASPIRATION, CONTACT AND SEIZURE PRECAUTIONS REMAIN IN PLACE. WILL MONITOR.
[2019-01-04] MEDS: PIPERACILLIN/TAZO 3.375/DEX-IS 50 ML IV SCH ×2 (05:49→13:33)
[2019-01-04] MEDS: methylPREDNISolone SOD SUCC/PF 62.5 MG/ML VIAL IVP SCH ×2 (05:49→13:35)
[2019-01-04] MEDS: NORMAL SALINE 5 ML DISP.SYRIN IVF SCH ×2 (05:49→13:42)
--- NOTE | 2019-01-04 05:49 | NUR ---
RN NOTE: PT CLEANED AND REPOSITIONED FOR COMFORT WITH PILLOW SUPPORT. SCHEDULED ZOSYN AND SOLU-MEDROL ADMINISTERED. SAFETY, ASPIRATION, CONTACT AND SEIZURE PRECAUTIONS REMAIN IN PLACE. WILL MONITOR.
--- NOTE | 2019-01-04 06:43 | NUR ---
CLOSING NOTE PT RESTING IN BED. ALL NEEDS ATTENDED THROUGHOUT SHIFT. SAFETY, ASPIRATION, CONTACT AND SEIZURE PRECAUTIONS MAINTAINED. WILL ENDORSE TO DAY SHIFT RN.
[2019-01-04 07:20] LABS: BASOPHILS % (AUTO) 0.1 % (0.0-2.0); HEMATOCRIT 34.4 % (36-54); HEMOGLOBIN 11.4 g/dL (14.0-18.0); LYMPHOCYTES # (AUTO) 0.5 K/uL (1.0-5.5); MEAN CORPUSCULAR HEMOGLOBIN 32 pg (27-31); MEAN CORPUSCULAR HGB CONC 33 % (32-36); MEAN CORPUSCULAR VOLUME 95 fL (79.0-98.0); MONOCYTES # (AUTO) 0.4 K/uL (0.0-1.0); MONOCYTES % (AUTO) 5.6 % (1.7-9.3); NEUTROPHILS # (AUTO) 6.9 K/uL (1.8-7.7); NEUTROPHILS % (AUTO) 87.3 % (40.0-70.0); PLATELET COUNT (AUTO) 201 K/uL (130-430); RED BLOOD CELL COUNT(AUTO) 3.61 MIL/uL (4.2-6.2); RED CELL DISTRIBUTION WIDTH 14.4 % (9.0-15.0); WHITE BLOOD COUNT (AUTO) 7.9 K/uL (4.8-10.8)
[2019-01-04 07:44] VITALS: BP_SYST 152
[2019-01-04 07:59] LABS: CALCIUM 8.6 mg/dL (8.4-11.0); CREATININE 1.23 mg/dL (0.55-1.30); POTASSIUM 4.2 mmol/L (3.5-5.1)
[2019-01-04 08:00] VITALS: BP_SYST 152
--- NOTE | 2019-01-04 08:00 | NUR ---
ASSUMPTION OF CARE: RECEIVED PT ASLEEP, AROUSED TO NAME, LIGHT TACTILE STIMULI, DX: INADEQUATE VENTILATION, R/T ASP. PNU, VSS, BREATH SOUNDS ARE CLEAR, BREATHING UNLABORED, SATURATING 97% ON 2L VIA N/C, IV SITE INTACT, PATENT, NO REDNESS OR SWELLING, CONTRACTED IN ALL EXTREMITIES, INCONTINENT OF B/B, REMAINS CLEAN AND DRY AT THIS TIME, NO SZ ACTIVITY NOTED, SIDE RAILS PADDED, UP X 3, SCD'S IN PLACE, CALL LIGHT WITHIN REACH, WILL CONT' TO MONITOR AND ASSESS.
[2019-01-04] MEDS: clonazePAM 0.5 MG TABLET GT SCH (09:00)
[2019-01-04] MEDS: LevETIRAcetam 500 MG/5 ML UDC ORAL LIQUID GT SCH (09:00)
[2019-01-04] MEDS: NYSTATIN 15 GM TOPICAL POWDER TP SCH (09:00)
[2019-01-04] MEDS: FAMOTIDINE 20 MG TABLET GT SCH (09:00)
[2019-01-04] MEDS: MUPIROCIN 2% TOPICAL OINTMENT 22 GM NS SCH (09:00)
[2019-01-04] MEDS: LACTULOSE 20 GM/30 ML UDC GT SCH (09:00)
[2019-01-04] MEDS: LISINOPRIL 10 MG TABLET (PRINIVIL) GT SCH (09:00)
[2019-01-04] MEDS: ASPIRIN 81 MG TAB.CHEW GT SCH (09:00)
--- NOTE | 2019-01-04 09:00 | NUR ---
PRODUCTION UTILITY WORKER: MORNING MEDS GIVEN, PER ORDERED BY Nati, TOLERATED WELL, REPOSITIONED FOR COMFORT, WILL CONT' TO MONITOR AND ASSESS.
[2019-01-04 12:00] VITALS: BP_SYST 143
--- NOTE | 2019-01-04 12:00 | NUR ---
NURSES NOTES: PT REMAINS STABLE, NO S/S OF DISTRESS, ON SZ. ACTIVITY NOTED, 200CC FREE WATER FLUSH GIVEN, TOLERATING FEEDING WITH <5CC RESIDUAL, ABD SOFTLY DISTENDED, GT CHECKED FOR PLACEMENT, SIDE RAILS UP X3, WILL CONT' TO MONITOR AND ASSESS.
[2019-01-04] MEDS ORDERED: FLU VACC QS2019-20 36MOS UP/PF 60 MCG/0.5 ML SYRINGE I.M. PRN (12:45)
[2019-01-04] MEDS: VANCOMYCIN HCL 1,000 MG in NS 250 ML IV SCH (13:33)
[2019-01-04 16:00] VITALS: BP_SYST 151
--- NOTE | 2019-01-04 16:00 | NUR ---
DISCHARGE: PT HAS ORDER FOR DISCHARGE BACK TO [facility], PICTURES TAKEN OF WOUNDS AND DOCUMENTED, CASE MANAGEMENT AWARE AND ARE PREPARING FOR TRANSPORT AND ROOM, WILL CONT' TO MONITOR AND ASSESS.
--- NOTE | 2019-01-04 16:49 | NUR ---
Discharge Planning: DCP faxed referral to [facility] (f [phone] p [phone]) DCP to follow up Addendum: 01/04/19 at 1707 by Jazz Nava DP [facility] (f [phone] p [phone]) Rm 222A, [facility] ([phone]) 6:00pm P/u. Nurse made aware patient packet taken to nurse station
[2019-01-04] MEDS ORDERED: PREDNISONE 20 MG TABLET GT SCH (18:00)
[2019-01-04 18:07] VITALS: BP_SYST 143
--- NOTE | 2019-01-04 18:30 | NUR ---
DISCHARGED: PT DISCHARGED TO SNF, IN STABLE CONDITION, IV SITE DISCONTINUED, PRESSURE DRSG APPLIED, TOLERATED WELL, GT CLAMPED, VSS, AFEBRILE, WILL GO TO ROOM 108-A, WILL BE TRANSPORTED VIA AMBULANCE.
[2019-01-04] MEDS ORDERED: DOXYCYCLINE HYCLATE 100 MG CAPSULE PO SCH (21:00)
== END 2019-01-04 18:20 | DRG 177 ==
LOC: SED 10:25 → SMU 12:57
PROVIDERS: ADMIT Family Medicine; ATTEND Family Medicine
DX: J69.0 Pneumonitis due to inhalation of food and vomit (principal); N17.0 Acute kidney failure with tubular necrosis; G93.40 Encephalopathy, unspecified; J44.1 Chronic obstructive pulmonary disease with (acute) exacerbation; J96.10 Chronic respiratory failure, unspecified whether with hypoxia or hypercapnia; G25.81 Restless legs syndrome; I10 Essential (primary) hypertension; G40.909 Epilepsy, unspecified, not intractable, without status epilepticus; Z86.73 Personal history of transient ischemic attack (TIA), and cerebral infarction without residual deficits; Z79.899 Other long term (current) drug therapy; Z79.82 Long term (current) use of aspirin
CPT/HCPCS: 36415; 71045; 80048; 80053; 80202-TC; 81000-TC; 83605; 83880; 84484; 85025; 86710; 87040-TC; 87081; 87086; 93005; 94640; 94760; 96365; 96375; 99285; J0360; J1650; J2060; J2543; J2930; J3370; J7030; J7040; J7050; J7512; J7613; J7620

== ENCOUNTER 2019-04-05 11:25 | Inpatient (IN) | payer OTHER, MEDICAID ==
[~2019-04-05] VITALS: Ht 172.7 cm; Wt 104.3 kg
[~2019-04-05 11:25] MED LIST changes: +ACET325T53 PO; +ALBU2.5V7 INH; +ATII2 IM/IV; +BISA10SU61 RC; +FAMO-132 GT; +LACT10PA5 GT; +MOM PO; +ONDA4TAB5 PO
[2019-04-05 11:32] VITALS: BP_SYST 134
--- NOTE | 2019-04-05 11:32 | NUR ---
Patient to ER bed 06 to gown for evaluation. Side rails up.
--- NOTE | 2019-04-05 11:40 | NUR ---
Patient brought in by ambulance in the ED for tachycardia and fever. Denied any fevers, chills or bodyaches. Denied any chest pain or shortness of breath. Patient is arousable, non-verbal, breathing through his mouth, non-verbal and bed-bound. Tachycardic and febrile, all other VS, pain level 0/10. Will continue to monitor.
--- NOTE | 2019-04-05 11:57 | NUR ---
ECG done at bedside as ordered by Dr. Zelaya. Patient tolerated the procedure well. Report given to MD for review.
[2019-04-05] MEDS ORDERED: PIPERACILLIN/TAZO 3.375 GM in NS 50 ML IV ONE (12:15)
[2019-04-05] MEDS ORDERED: NACL 0.9% 3,000 ML IV ONE (12:15)
--- NOTE | 2019-04-05 12:20 | NUR ---
# 16 FR In and Out catheter with use of sterile technique. Immediate return of 100 ml dark yellow urine noted. Urine sample collected and sent to lab. Pt tolerated procedure well. Patient unable to toilet self.
--- NOTE | 2019-04-05 12:23 | NUR ---
X-ray tech at bedside as ordered by Dr. Zelaya. Patient tolerated the procedure well.
--- NOTE | 2019-04-05 12:37 | NUR ---
Swabbed for MRSA. autobody technician at bedside collecting blood specimen as ordered by Dr. Zelaya. Patient tolerated the procedure well.
[2019-04-05 12:39] LABS: BILIRUBIN,URINE NEGATIVE (NEGATIVE); BLOOD, URINE NEGATIVE (NEGATIVE); CLARITY/URINE CLEAR (CLEAR); COLOR,URINE YELLOW (YELLOW); GLUCOSE,URINE NEGATIVE (NEGATIVE); KETONES,URINE NEGATIVE (NEGATIVE); LEUKOCYTE ESTERASE ,URINE NEGATIVE (NEGATIVE); NITRITE, URINE NEGATIVE (NEGATIVE); PH,URINE 5.5 (5.0-8.0); PROTEIN URINE TRACE (NEGATIVE); UROBILINOGEN,URINE 0.2 (0.2-1.0)
[2019-04-05] MEDS ORDERED: PIPERACILLIN/TAZOBACTAM 3.375 GM/VIAL (ZOSYN) IV ONE (12:43)
[2019-04-05 12:44] LABS: BACTERIA,URINE FEW /HPF (None Seen); RBC,URINE 0-3 /HPF (0-3); WBC,URINE 0-3 /HPF (0-3)
--- NOTE | 2019-04-05 12:50 | NUR ---
Administered Zosyn IVPB as ordered by Dr. Zelaya. Patient tolerated the medication well. See eMAR for details.
[2019-04-05 13:17] LABS: BASOPHILS # (AUTO) 0.1 K/uL (0.0-0.2); BASOPHILS % (AUTO) 0.4 % (0.0-2.0); EOSINOPHILS # (AUTO) 0.1 K/uL (0.0-0.4); EOSINOPHILS % (AUTO) 0.9 % (0.0-4.0); LYMPHOCYTES # (AUTO) 0.9 K/uL (1.0-5.5); LYMPHOCYTES % (AUTO) 6.9 % (20.5-51.5); MEAN CORPUSCULAR HEMOGLOBIN 30 pg (27-31); MEAN CORPUSCULAR HGB CONC 33 % (32-36); MEAN CORPUSCULAR VOLUME 92 fL (79.0-98.0); MONOCYTES # (AUTO) 1.2 K/uL (0.0-1.0); MONOCYTES % (AUTO) 9.7 % (1.7-9.3); NEUTROPHILS # (AUTO) 10.6 K/uL (1.8-7.7); NEUTROPHILS % (AUTO) 82.1 % (40.0-70.0); PLATELET COUNT (AUTO) 203 K/uL (130-430); RED CELL DISTRIBUTION WIDTH 14.4 % (9.0-15.0); WHITE BLOOD COUNT (AUTO) 12.9 K/uL (4.8-10.8)
[2019-04-05 13:28] LABS: CALCIUM 8.1 mg/dL (8.4-11.0); CREATININE 1.23 mg/dL (0.55-1.30); POTASSIUM 3.5 mmol/L (3.5-5.1)
[2019-04-05 13:34] LABS: INR 1.4 (0.80-1.20); PROTHROMBIN TIME 14.4 SECS (9.5-12.5)
[2019-04-05 13:45] LABS: ALBUMIN 3.2 g/dL (3.4-4.8); TOTAL BILIRUBIN 0.7 mg/dL (0.0-1.0)
--- NOTE | 2019-04-05 15:31 | NUR ---
Received admitting orders from Dr. Coelho.
[2019-04-05] MEDS ORDERED: KCL 20 mEq in D5/0.45NS 1000mL 1,000 ML IV ONE (15:45)
--- NOTE | 2019-04-05 15:50 | NUR ---
ADMISSION NOTE Received patient from ER via misha, received report from DEREJE CHAKRABORTY. Patient admitted with diagnosis of PNEUMONIA. Patient oriented to hospital routine, call light, toileting and safety-patient verbalized understanding.
[2019-04-05 16:04] VITALS: BP_SYST 133
--- NOTE | 2019-04-05 16:04 | NUR ---
Patient will be admitted to care of Dr. Coelho. Admitted to Telemetry unit. Will go to room 134A. Belongings list completed. Complete and up to date summary report printed. SBAR report given to PALMER Tyler at bedside with opportunity for questions.
[2019-04-05 16:34] VITALS: BP_SYST 133
--- NOTE | 2019-04-05 16:40 | NUR ---
notes- In bed, open her eyes. non verbal no acute distress noted. On o2 2l. padded side rails, On o2 2l, tolerating well. GT is clamped. bed alarm on. SR on the monitor.
--- NOTE | 2019-04-05 17:42 | NUR ---
MD ROUNDS SEEN BY DR. FARRELL AT BEDSIDE.
[2019-04-05] MEDS ORDERED: MILK OF MAGNESIA 30 ML UDC PO PRN (17:45)
[2019-04-05] MEDS ORDERED: LevALBUTEROL HCL 1.25 MG/0.5 ML *CONC.* VIAL.NEB (XOPENEX CONC.) INH PRN (17:45)
[2019-04-05] MEDS ORDERED: ONDANSETRON HCL 4 MG/2 ML VIAL IVP PRN (17:45)
[2019-04-05] MEDS ORDERED: DOCUSATE SODIUM 100 MG/10 ML UDC GT PRN (17:45)
[2019-04-05] MEDS ORDERED: ACETAMINOPHEN 325 MG TABLET PO PRN (17:45)
[2019-04-05] MEDS ORDERED: BISACODYL 10 MG/SUPPOSITORY RC PRN (17:45)
[2019-04-05 18:00] VITALS: BP_SYST 133
--- NOTE | 2019-04-05 18:04 | NUR ---
Called dietary for feeding. will endorse.
--- NOTE | 2019-04-05 18:05 | NUR ---
picture- Unable to take picture of the wounds on the sacral area at this time. will endorse to the next shift.
[2019-04-05] MEDS: LevALBUTEROL HCL 1.25 MG/0.5 ML *CONC.* VIAL.NEB (XOPENEX CONC.) INH SCH (19:13)
--- NOTE | 2019-04-05 19:30 | NUR ---
Opening notes Received report. Patient is resting in bed. No signs of distress noted. Breathing even and unlabored on 2 L NC. IV patent and intact, infusing fluids. G-tube in place. Call light with the patient. Safety precautions in place.
[2019-04-05] MEDS: PIPERACILLIN/TAZO 3.375/DEX-IS 50 ML IV SCH (19:50)
--- NOTE | 2019-04-05 20:30 | NUR ---
Wound photos taken and placed in chart. Hygiene care also provided. Patient tolerated well. Call light with the patient. Safety precautions in place.
[2019-04-05 20:35] VITALS: BP_SYST 130
[2019-04-05] MEDS: PROTEIN HYDROLYSATE MILK GT SCH (21:00)
[2019-04-05] MEDS: VANCOMYCIN HCL 1,500 MG in NS 250 ML IV SCH (21:19)
[2019-04-05] MEDS: ENOXAPARIN SODIUM 40 MG/0.4 ML SYRINGE SUBCUT SCH (21:20)
[2019-04-05] MEDS: CLOTRIMAZOLE/BETAMET DIPROP 15 GM TUBE TP SCH (21:20)
[2019-04-05] MEDS: levETIRAcetam 500 MG TABLET GT SCH (21:21)
[2019-04-05] MEDS: FAMOTIDINE 20 MG TABLET GT SCH (21:21)
[2019-04-05] MEDS: clonazePAM 0.5 MG TABLET GT SCH (21:21)
--- NOTE | 2019-04-05 21:30 | NUR ---
Medications/Tubefeeding Medications given via g-tube. No residual noted. G-tube flushes well. Educated the action and side effects of medications. Patient tolerated well. Tubefeeding started. Patient tolerated well. No other needs at this time. Call light with the patient. Safety precautions in place.
[2019-04-06 00:12] VITALS: BP_SYST 120
[2019-04-06] MEDS: LevALBUTEROL HCL 1.25 MG/0.5 ML *CONC.* VIAL.NEB (XOPENEX CONC.) INH SCH ×4 (00:13→20:04)
--- NOTE | 2019-04-06 00:23 | NUR ---
Temp 100.4 PRN tylenol given via g-tube. Cooling measures applied. Educated the patient the action and side effects of medication. Will continue to monitor. Addendum: 04/06/19 at 0101 by Jody Panchal RN TEMP REASSESSMENT: 99.6. Will continue to monitor.
[2019-04-06] MEDS: PIPERACILLIN/TAZO 3.375/DEX-IS 50 ML IV SCH ×4 (00:59→17:18)
--- NOTE | 2019-04-06 02:30 | NUR ---
Sleeping Patient is sleeping. No signs of distress noted. Breathing even and unlabored. IVF and feeding infusing well. No needs. Call light with the patient. Safety precautions in place.
--- NOTE | 2019-04-06 04:20 | NUR ---
Hygiene care/Temp 98.8 Hygiene care provided. Patient tolerated well. No signs of distress noted. Breathing even and unlabored. IVF infusing well. Current temp 98.8. Call light with the patient. Safety precautions in place.
[2019-04-06] MEDS: VANCOMYCIN HCL 1,500 MG in NS 250 ML IV SCH ×2 (06:40→20:22)
--- NOTE | 2019-04-06 07:20 | NUR ---
Closing notes Patient is resting comfortably in bed. No signs of distress noted. Breathing even and unlabored on 2 L NC. IV patent and intact, no signs of infiltration noted. G-tube in place, infusing feeding. all needs met throughout the shift. Call light with the patient. Safety precautions in place. Will endorse care to day shift RN.
[2019-04-06 07:30] VITALS: BP_SYST 109
[2019-04-06] MEDS: LACTULOSE 20 GM/30 ML UDC GT SCH (08:32)
[2019-04-06] MEDS: FAMOTIDINE 20 MG TABLET GT SCH ×2 (08:33→20:22)
[2019-04-06] MEDS: ASPIRIN 81 MG TAB.CHEW GT SCH (08:33)
[2019-04-06] MEDS: clonazePAM 0.5 MG TABLET GT SCH ×2 (08:33→20:22)
[2019-04-06] MEDS: levETIRAcetam 500 MG TABLET GT SCH ×2 (08:33→20:22)
[2019-04-06] MEDS: CLOTRIMAZOLE/BETAMET DIPROP 15 GM TUBE TP SCH ×2 (08:34→20:24)
[2019-04-06] MEDS: PROTEIN HYDROLYSATE MILK GT SCH ×2 (09:00→20:24)
--- NOTE | 2019-04-06 09:56 | NUR ---
Nutrition Update Pasquale Scale 14 noted. Pt admitted for pneumonia. Diet: Jevity 1.5 at 50 ml/hr, Free Water Flush: 150 ML Q6H via GT BMI: 35 kg/m2 RD to follow per nutrition care standards.
--- NOTE | 2019-04-06 11:11 | NUR ---
WOUND EVALUATION: Wound Consult received from Dr. Coelho. Thank you, Dr. Coelho, for the consult. Patient received in a Sawyer Bed with an Isoflex NABILA mattress with low air loss therapy initiated, awake, nonverbal, nonresponsive to verbal commands. Patient is unable to turn in bed independently. Pasquale Score is a 14. Past Medical History: CVA, Seizure disorder, Chronic Encephalopathy, Dysphagia, G-tube placement. Recent Labs: WBC 12.9, RBC 4.70, hemoglobin 14.0, hematocrit 43.0 BUN 22, creatinine 1.23, GFR 64, glucose 135, calcium 8.1, albumin 3.2, PT 14.4, INR 1.4. Microbiology: Blood culture results 2 in progress. Urine culture results in progress. MRSA screen results in progress. Intrinsic factors that delay wound healing: CVA, Chronic Encephalopathy, Hypoalbuminemia. Extrinsic factors that delay wound healing: Immobility. Wound Assessment: 1. Right buttock: IAD with erythema and moisture associated skin damage/wound, present on admission. Open area has red tissue, and barrier cream does not cover the open area completely. No odor, no drainage. Marina-site and surrounding tissue has blanchable red erythema. Site measures 5.6 cm x 3.0 cm. 2. Right buttock near Ischium: IAD with erythema and moisture associated skin damage/wound, present on admission. Open area has red tissue, and barrier cream does not cover the open area completely. No odor, no drainage. Marina-site and surrounding tissue has blanchable red erythema. Site measures 8.5 cm x 4.7 cm. Recommend: Cleanse sites with normal saline. Apply Calmoseptine cream to sites. Apply small amount of Hydrogel to any open area not covered by Calmoseptine cream. Cover with 4x4 foam dressing. Perform wound/site care daily, and as needed for dressing soiling or dislodgement. 3. Left buttock: IAD with erythema and scar tissue, present on admission. No odor, no drainage. Marina-site and surrounding tissue has blanchable red erythema. Recommend: Cleanse involved area with mild soap and water. Pat dry. Apply Calmoseptine cream to involved area. 4. Right [place], Superior Wound: Chronic wound, present on admission. Wound bed has 100% black scab. No odor, no drainage. Dry, stable. Periwound intact. Wound measures 0.7 cm x 0.4 cm. 5. Right [place], Middle Wound: Chronic wound, present on admission. Wound bed has 100% black scab. No odor, no drainage. Dry, stable. Periwound intact. Wound measures 1.2 cm x 0.4 cm. 6. Right [place], Inferior Wound: Chronic wound, present on admission. Wound bed has 100% black scab. No odor, no drainage. Dry, stable. Periwound intact. Wound measures 0.5 cm x 0.3 cm. 7. Right Dorsal Foot near anterior/lateral joint line: Chronic wound, present on admission. Wound bed has 100% black scab. No odor, no drainage. Dry, stable. Periwound intact. Wound measures 0.5 cm x 0.5 cm. Recommend: No dressings needed. Assess sites q shift. 8. Right Medial Foot at 1st Metatarsal Head: Chronic wound, present on admission. Wound bed has 100% black scab. No odor, no drainage. Dry, stable. Periwound intact. Wound measures 0.4 cm x 0.3 cm. 9. Right Medial Foot at 1st Metatarsal Head, Distal to site 8: Chronic wound, present on admission. Wound bed has 100% black scab. No odor, no drainage. Dry, stable. Periwound intact. Wound measures 0.2 cm x 0.1 cm. Recommend: Offload heels and involved areas at all times. Assess sites q shift. 10. Right Forearm: Ecchymosis and red discoloration, present on admission. No odor, no drainage. Periwound intact. Recommend: No dressing needed. Assess site q shift. 11. Scrotum: Erythema from IAD, present on admission. Recommend: Cleanse involved area with mild soap and water. Pat dry. Apply Calmoseptine cream to involved area. Place Interdry AG cloth undernerath Scrotum and pull Scrotum up off of bed by pulling Interdry AG cloth in between thighs. Perform site care QID, and as needed for soiling. Change Interdry AG cloth q five days, and as needed for soiling. Also recommend: Reposition patient [id number] only every 2 hours with pillow support (place one pillow above and one pillow below right buttocks wounds, you should be able to slide your hand freely underneath buttocks). Off-load pressure areas with pillows for pressure re-distribution. Offload, elevate and float bilateral heels with one pillow lengthwise under each extremity at all times. Perform skin care and monitor skin integrity Q shift. Use Calmoseptine cream on buttocks and other moisture susceptible areas QID and as needed for soiling. Maintain patient on a low air-loss mattress.
[2019-04-06] MEDS ORDERED: MENTHOL/ZINC OXIDE 113 GM OINT. TP PRN (12:00)
[2019-04-06 12:35] VITALS: BP_SYST 128
[2019-04-06 16:46] VITALS: BP_SYST 121
--- NOTE | 2019-04-06 19:30 | NUR ---
Opening notes Received report. Patient is resting in bed. No signs of distress noted. Breathing even and unlabored on 2 L NC. IV patent and intact, no signs of infiltration noted. 1930 vancomycin not available, per pharmacy, use scheduled 0730 bag for now and they will generate another bag in the morning. Call light with the patient. Safety precautions in place.
[2019-04-06 20:00] VITALS: BP_SYST 121
[2019-04-06] MEDS: ENOXAPARIN SODIUM 40 MG/0.4 ML SYRINGE SUBCUT SCH (20:23)
--- NOTE | 2019-04-06 20:30 | NUR ---
Medications/G-tube when assessed, g-tube detention pulled out. G-tube was replaced in and secured. Periwound of g-tube site was red and noted with pus. Residual checked and noted with 10 ml of feeding. G-tube flushes well. medications given. Educated the action and side effects of medications. Call light with the patient. Safety precautions in place.
--- NOTE | 2019-04-06 22:56 | NUR ---
Sleeping Patient sleeping. No signs of distress noted. Breathing even and unlabored. Feeding infusing well. Call light with the patient. Safety precautions in place.
[2019-04-07] MEDS: PIPERACILLIN/TAZO 3.375/DEX-IS 50 ML IV SCH ×4 (00:09→18:50)
[2019-04-07] MEDS: LevALBUTEROL HCL 1.25 MG/0.5 ML *CONC.* VIAL.NEB (XOPENEX CONC.) INH SCH ×4 (00:40→20:49)
[2019-04-07 00:46] VITALS: BP_SYST 106; BP_SYST 117
--- NOTE | 2019-04-07 02:01 | NUR ---
Sleeping No signs of distress noted. Breathing even and unlabored. Call light with the patient. Safety precautions in place.
--- NOTE | 2019-04-07 04:30 | NUR ---
Hygiene care Hygiene care provided. Patient tolerated well. No signs of distress noted. Breathing even and unlabored. No other needs. Call light with the patient. Safety precautions in place.
[2019-04-07] MEDS: clonazePAM 0.5 MG TABLET GT SCH ×2 (09:24→22:03)
[2019-04-07] MEDS: ASPIRIN 81 MG TAB.CHEW GT SCH (09:24)
[2019-04-07] MEDS: PROTEIN HYDROLYSATE MILK GT SCH ×2 (09:24→21:00)
[2019-04-07] MEDS: levETIRAcetam 500 MG TABLET GT SCH ×2 (09:24→22:03)
[2019-04-07] MEDS: LACTULOSE 20 GM/30 ML UDC GT SCH (09:24)
[2019-04-07] MEDS: CLOTRIMAZOLE/BETAMET DIPROP 15 GM TUBE TP SCH ×2 (09:24→22:04)
[2019-04-07] MEDS: FAMOTIDINE 20 MG TABLET GT SCH ×2 (09:24→22:03)
[2019-04-07 10:20] VITALS: BP_SYST 121
[2019-04-07 12:00] VITALS: BP_SYST 134
[2019-04-07] MEDS: MUPIROCIN 2% TOPICAL OINTMENT 22 GM NS SCH ×2 (14:15→22:04)
--- NOTE | 2019-04-07 15:27 | NUR ---
Case mgt: Pt non-verbal--LVM with brother Homero at [phone] to call case mgt. I called son Kyle at [phone]--per Kyle pt has been at [facility] x 8 yrs since pt's stroke--pt bedbound and non-verbal--Aurelio Wright is agreeable for discharge back to [facility] when stable and made aware of choice of vendor--MALINDA CHAKRABORTY
--- NOTE | 2019-04-07 16:47 | NUR ---
Nutrition Assessment (short note d/t high patient load) A - RD reviewed pertinent nutrition-related info via EMR (physician notes/nursing notes/labs/meds/nursing care trends/care activity). Admission Dx: Pneumonia PMH: CVA, seizure disorder, dysphagia per physician notes Current Diet Order/Nutrition Support: Jevity 1.5 at 50 ml/hr, Free Water Flush: 140 ML Q6H via GT x1 day Ht: 68"/5'8" Wt: 229#/104 kg IBW: 154#/70 kg %IBW: 149% Adj IBW (obesity): 173#/79 kg UBW: Unknown %UBW: Unknown BMI: 35 kg/m2 (obesity class II) Subjective Info: RD Notification received for TF and unspecified nutritional problem. Nutrition Consult for wounds. Pt is bedbound and non-verbal per EMR. Pt is +MRSA of nares, tolerating TF well, and no plans/procedures per primary RN report. TF was seen hung, but not infusing at time of RD visit as SAW HANDLE ASSEMBLER was providing care. Pt is not yet meeting optimal nutritional needs w/ current TF regimen. RD communicated RD rec to pt's primary RN. ESTIMATED NUTRITIONAL NEEDS CALORIES/DAY: 0570-3094 kcal/day (MSJ x 1.2-1.5 CBW for acute state) PROTEIN/DAY: 95-119 gm/day (1.2-1.5 gm/kg Adj IBW for acute state) FLUID/DAY: 2.2-2.7 L/day (1 ml/kcal/day for maintenance) D - Increased nutritional needs related to metabolic demands as evidenced by estimated nutritional requirements for acute state. I - Recommend Jevity 1.5 at 55 ml/hr, Emanuel BID, Prosource daily, Free Water Flush: 200 ml Q4h via GT Provides: 2200 kcal/day, 104 gm protein/day, and 2203 ml free water/day Meets: 101% of lower end of estimated caloric needs and 109% of lower end of estimated protein needs M - Monitor tolerance to EN support w/ goal of pt meeting at least 90% of estimated nutritional needs, labs trending WNL, skin integrity/wt maintenance E - High risk; RD to F/U within 2-3 days
--- NOTE | 2019-04-07 16:54 | NUR ---
Dietitian Recommendations * Recommend Jevity 1.5 at 55 ml/hr, Emanuel BID, Prosource daily, Free Water Flush: 200 ml Q4h via GT Provides: 2200 kcal/day, 104 gm protein/day, and 2203 ml free water/day Meets: 101% of lower end of estimated caloric needs and 109% of lower end of estimated protein needs LP, RD Please refer to Nutrition Assessment for details.
[2019-04-07 17:23] VITALS: BP_SYST 134
[2019-04-07 20:00] VITALS: BP_SYST 130
--- NOTE | 2019-04-07 20:00 | NUR ---
ASSUMED CARE. RECEIVED. ASLEEP, NON-VERBAL. WITHDRAWS TO PAIN FUL STIMULI. AFEBRILE, NOT IN ACUTE DISTRESS. NO PAIN OR DISCOMFORT NOTED. WITH SALINE LOCK TO THE LEFT AC # 18 INTACT. JEVITY 1.5 RUNNING AT 55 ML/HR. HEAD OF BED ELEVATED AT LEAST 30 DEGREES AT ALL TIMES. SAO2-97% ON 2 LPM O2 VIA NC. SINUS RHYTHM AT 80-90'S/MINUTE ON THE MONITOR. CONTACT ISOLATION FOR MRSA OF NARES BEING OBSERVED. VS STABLE, WILL CONTINUE TO MONITOR. NEEDS ATTENDED.
[2019-04-07] MEDS: ENOXAPARIN SODIUM 40 MG/0.4 ML SYRINGE SUBCUT SCH (22:06)
--- NOTE | 2019-04-07 22:06 | NUR ---
AGSTRIC RESIDUAL=15 ML. DUE MEDICATIONS GIVEN VIA G-TUBE.
--- NOTE | 2019-04-08 | NUR ---
ASLEEP, NOT IN ANY KIND OF DISTRESS. NO PAIN OR DISCOMFORT NOTED. SIDE RAILS UP, CALL LIGHT WITHIN REACH. KEPT WARM AND COMFORTABLE. VS REMAIN STABLE. WILL CONTINUE TO MONITOR.
[2019-04-08] MEDS: PIPERACILLIN/TAZO 3.375/DEX-IS 50 ML IV SCH ×5 (00:11→23:50)
[2019-04-08] MEDS: LevALBUTEROL HCL 1.25 MG/0.5 ML *CONC.* VIAL.NEB (XOPENEX CONC.) INH SCH ×4 (01:31→19:20)
[2019-04-08 01:57] VITALS: BP_SYST 116
--- NOTE | 2019-04-08 04:00 | NUR ---
ASLEEP, NO SIGNIFICANT CHANGE. PT.REMAINS STABLE AND PAIN FREE.
--- NOTE | 2019-04-08 06:15 | NUR ---
DUE IV ANTIBIOTIC GIVEN.
[2019-04-08 07:07] LABS: BASOPHILS % (AUTO) 0.6 % (0.0-2.0); EOSINOPHILS # (AUTO) 0.2 K/uL (0.0-0.4); EOSINOPHILS % (AUTO) 10.6 % (0.0-4.0); HEMOGLOBIN 11.1 g/dL (14.0-18.0); LYMPHOCYTES # (AUTO) 0.6 K/uL (1.0-5.5); LYMPHOCYTES % (AUTO) 29.7 % (20.5-51.5); MEAN CORPUSCULAR HEMOGLOBIN 30 pg (27-31); MEAN CORPUSCULAR HGB CONC 33 % (32-36); MEAN CORPUSCULAR VOLUME 92 fL (79.0-98.0); MONOCYTES # (AUTO) 0.2 K/uL (0.0-1.0); MONOCYTES % (AUTO) 10.5 % (1.7-9.3); NEUTROPHILS # (AUTO) 1.1 K/uL (1.8-7.7); PLATELET COUNT (AUTO) 129 K/uL (130-430); RED BLOOD CELL COUNT(AUTO) 3.72 MIL/uL (4.2-6.2); RED CELL DISTRIBUTION WIDTH 14.6 % (9.0-15.0); WHITE BLOOD COUNT (AUTO) 2.2 K/uL (4.8-10.8)
--- NOTE | 2019-04-08 07:20 | NUR ---
ENDORSED CARE TO [place] RN STABLE.
[2019-04-08 07:42] LABS: CALCIUM 7.6 mg/dL (8.4-11.0); CREATININE 1.18 mg/dL (0.55-1.30); POTASSIUM 3.6 mmol/L (3.5-5.1); VANCOMYCIN,RANDOM 20.9 ug/mL
[2019-04-08 08:00] VITALS: BP_SYST 139
[2019-04-08] MEDS: PROTEIN HYDROLYSATE MILK GT SCH ×2 (09:00→21:00)
[2019-04-08 10:08] VITALS: BP_SYST 116
[2019-04-08] MEDS: FAMOTIDINE 20 MG TABLET GT SCH ×2 (11:21→21:21)
[2019-04-08] MEDS: levETIRAcetam 500 MG TABLET GT SCH ×2 (11:21→21:21)
[2019-04-08] MEDS: LACTULOSE 20 GM/30 ML UDC GT SCH (11:21)
[2019-04-08] MEDS: clonazePAM 0.5 MG TABLET GT SCH ×2 (11:21→21:20)
[2019-04-08] MEDS: ASPIRIN 81 MG TAB.CHEW GT SCH (11:22)
[2019-04-08 11:59] LABS: NEUTROPHILS % (AUTO) 48.6 % (40.0-70.0)
[2019-04-08 12:35] VITALS: BP_SYST 139
[2019-04-08] MEDS: CLOTRIMAZOLE/BETAMET DIPROP 15 GM TUBE TP SCH ×2 (12:58→21:22)
[2019-04-08] MEDS: MUPIROCIN 2% TOPICAL OINTMENT 22 GM NS SCH ×2 (13:05→21:21)
[2019-04-08 16:25] VITALS: BP_SYST 143
[2019-04-08 20:00] VITALS: BP_SYST 136
[2019-04-08] MEDS ORDERED: VANCOMYCIN HCL 1,500 MG in NS 250 ML IV SCH (20:00)
--- NOTE | 2019-04-08 20:00 | NUR ---
RECEIVED PT. ASLEEP, NON-VERBAL. WITHDRAWS TO PAINFUL STIMULI. AFEBRILE, NOT IN ACUTE DISTRESS. NO PAIN OR DISCOMFORT NOTED. WITH SALINE LOCK TO THE LEFT ANTECUBITAL AREA GAUGE 18 INTACT. JEVITY 1.5 CHARLA RUNNING AT 55 ML/HR VIA PEG TUBE. HEAD OF BED ELEVATED AT LEAST 30 DEGREES AT ALL TIMES. SAO2-96% ON 2 LPM O2 VIA NC. SINUS RHYTHM AT 80'S/MINUTE ON THE MONITOR. CONTACT ISOLATION FOR MRSA OF NARES CURRENTLY IMPLEMENTED. SIDE RAILS PADDED FOR SEIZURE PRECAUTION. VS STABLE, WILL CONTINUE TO MONITOR. NEEDS ATTENDED.
[2019-04-08] MEDS: ENOXAPARIN SODIUM 40 MG/0.4 ML SYRINGE SUBCUT SCH (21:23)
--- NOTE | 2019-04-08 21:23 | NUR ---
GASTRIC RESIDUAL=80 ML. DUE MEDICATIONS GIVEN.
[2019-04-09] VITALS: BP_SYST 150
--- NOTE | 2019-04-09 | NUR ---
PT. NOTED TO BE CONGESTED AND WITH AUDIBLE WHEEZING. BREATHING EQUAL AND UNLABORED SAO2=97% ON 2 LPM O2 VIA NC. ORAL SUCTIONING DONE. RT. CALLED FOR BREATHING TREATMENT AND NASOPHARYGEAL DEEP SUCTIONING. SIDE RAILS UP,CALL LIGHT WITHIN REACH. KEPT WARM AND COMFORTABLE. WILL CONTINUE TO MONITOR.
[2019-04-09] MEDS: LevALBUTEROL HCL 1.25 MG/0.5 ML *CONC.* VIAL.NEB (XOPENEX CONC.) INH SCH ×3 (00:24→13:31)
--- NOTE | 2019-04-09 00:25 | NUR ---
RT AT BEDSIDE GIVING BREATHING TREATMENT.
--- NOTE | 2019-04-09 02:15 | NUR ---
ASLEEP, WHEEZING AND GURGLING SOUND IMPROVED AFTER BREATHING TREATMENT AND NASOPHARYNGEAL DEEP SUCTIONING BY RT. GASTRIC RESIDUAL <20 ML. 200 ML FREE WATER FLUSH GIVEN VIA G-TUBE PER STANDING ORDER.
[2019-04-09] MEDS: PIPERACILLIN/TAZO 3.375/DEX-IS 50 ML IV SCH ×2 (05:59→12:33)
--- NOTE | 2019-04-09 06:00 | NUR ---
DUE MEDICATION GIVEN. PT. REMAINS STABLE AND PAIN FREE. WILL ENDORSE CARE TO AM SHIFT RN.
--- NOTE | 2019-04-09 07:28 | NUR ---
REPORT GIVEN TO GANGA BYRNE.
[2019-04-09 08:00] VITALS: BP_SYST 139
[2019-04-09] MEDS: levETIRAcetam 500 MG TABLET GT SCH (09:49)
[2019-04-09] MEDS: ASPIRIN 81 MG TAB.CHEW GT SCH (09:49)
[2019-04-09] MEDS: clonazePAM 0.5 MG TABLET GT SCH (09:49)
[2019-04-09] MEDS: FAMOTIDINE 20 MG TABLET GT SCH (09:49)
[2019-04-09] MEDS: LACTULOSE 20 GM/30 ML UDC GT SCH (09:49)
[2019-04-09] MEDS: MUPIROCIN 2% TOPICAL OINTMENT 22 GM NS SCH (09:50)
[2019-04-09] MEDS: CLOTRIMAZOLE/BETAMET DIPROP 15 GM TUBE TP SCH (09:51)
[2019-04-09] MEDS: PROTEIN HYDROLYSATE MILK GT SCH (09:55)
[2019-04-09 12:47] VITALS: BP_SYST 150
--- NOTE | 2019-04-09 16:47 | NUR ---
Vice President Of Procurement: fax packet over to [facility] [employer] TESTER fax'd over a packet to [facility].
[2019-04-09 16:52] VITALS: BP_SYST 158
--- NOTE | 2019-04-09 18:13 | NUR ---
ARRANGED WITH [facility]LS TRANSPORT TO [facility] RM 222A. COPIER AND PRINTER FIELD TECHNICIAN TIME IS 1900. SPOKE TO ASHLEY.
[2019-04-09 18:31] VITALS: BP_SYST 139
--- NOTE | 2019-04-09 19:00 | NUR ---
REPORT CALLED TO DINA GONZALEZ AT THE [facility] AND PT DISCHARGED PER [facility] TO [id number] VSS, AFEBRILE. GANGA GAYTAN RN
== END 2019-04-09 19:05 | DRG 871 ==
LOC: SED 11:25 → STU 15:31
PROVIDERS: ADMIT Family Medicine; ATTEND Family Medicine
DX: A41.9 Sepsis, unspecified organism (principal); J69.0 Pneumonitis due to inhalation of food and vomit; G93.40 Encephalopathy, unspecified; G40.909 Epilepsy, unspecified, not intractable, without status epilepticus; R09.02 Hypoxemia; I11.9 Hypertensive heart disease without heart failure; M10.9 Gout, unspecified; G25.81 Restless legs syndrome; Z86.73 Personal history of transient ischemic attack (TIA), and cerebral infarction without residual deficits; Z79.899 Other long term (current) drug therapy; Z79.82 Long term (current) use of aspirin
CPT/HCPCS: 36415; 71045; 80048; 80053; 80202-TC; 81000-TC; 83605; 84484; 85025; 85610-TC; 85730-TC; 87040-TC; 87081; 87086; 93005; 94640; 94760; 96374; 96375; 96376; 99285; G0378; J1650; J2543; J3370; J7050; J7612

== ENCOUNTER 2019-06-13 10:29 | Emergency (ER) | payer OTHER, MEDICAID ==
[~2019-06-13] VITALS: Ht 167.6 cm; Wt 81.6 kg
[2019-06-13 10:29] VITALS: BP_SYST 146
[2019-06-13 10:55] VITALS: BP_SYST 146
[2019-06-13] MEDS ORDERED: GASTROGRAFIN 120 ML ONE (11:03)
== END 2019-06-13 10:55 | disposition home or self-care (01) ==
LOC: SED 10:29
DX: K94.29 Other complications of gastrostomy (principal); I10 Essential (primary) hypertension; Z79.82 Long term (current) use of aspirin; Z79.899 Other long term (current) drug therapy
CPT/HCPCS: 43762; 74240; 99284; Q9963

== ENCOUNTER 2019-06-15 12:34 | Inpatient (IN) | payer OTHER, MEDICAID ==
[~2019-06-15] VITALS: Ht 182.9 cm; Wt 81.6 kg
[2019-06-15 12:50] VITALS: BP_SYST 150
--- NOTE | 2019-06-15 12:50 | NUR ---
Patient to ER bed 3 to gown for evaluation. Side rails up.
--- NOTE | 2019-06-15 12:58 | NUR ---
Pt brought to ER via ambulance after G tube leaked, possibly in need of replacement. Pt resting in [facility] awaiting
--- NOTE | 2019-06-15 13:10 | NUR ---
ER at bedside examining patient.
[2019-06-15 14:00] LABS: BASOPHILS % (AUTO) 0.2 % (0.0-2.0); EOSINOPHILS # (AUTO) 0.4 K/uL (0.0-0.4); EOSINOPHILS % (AUTO) 2.7 % (0.0-4.0); HEMATOCRIT 44.8 % (36-54); HEMOGLOBIN 15.1 g/dL (14.0-18.0); LYMPHOCYTES # (AUTO) 2.1 K/uL (1.0-5.5); LYMPHOCYTES % (AUTO) 13.7 % (20.5-51.5); MEAN CORPUSCULAR HEMOGLOBIN 30 pg (27-31); MEAN CORPUSCULAR HGB CONC 34 % (32-36); MEAN CORPUSCULAR VOLUME 89 fL (79.0-98.0); MONOCYTES # (AUTO) 0.9 K/uL (0.0-1.0); MONOCYTES % (AUTO) 5.9 % (1.7-9.3); NEUTROPHILS % (AUTO) 77.5 % (40.0-70.0); PLATELET COUNT (AUTO) 278 K/uL (130-430); RED BLOOD CELL COUNT(AUTO) 5.04 MIL/uL (4.2-6.2); RED CELL DISTRIBUTION WIDTH 14.2 % (9.0-15.0); WHITE BLOOD COUNT (AUTO) 15.5 K/uL (4.8-10.8)
[2019-06-15 14:18] LABS: INR 1.1 (0.80-1.20); PROTHROMBIN TIME 11.5 SECS (9.5-12.5)
[2019-06-15 14:20] LABS: ALBUMIN 3.3 g/dL (3.4-4.8); CREATININE 1.3 mg/dL (0.55-1.30); POTASSIUM 3.4 mmol/L (3.5-5.1); TOTAL BILIRUBIN 0.3 mg/dL (0.0-1.0)
[2019-06-15 14:30] LABS: CALCIUM 8.7 mg/dL (8.4-11.0)
--- NOTE | 2019-06-15 15:00 | NUR ---
Pt in bed, VSS at this time, no distress noted
[2019-06-15] MEDS ORDERED: ceFAZolin SODIUM 1 GM in D5W 50 ML IV ONE (16:30)
[2019-06-15] MEDS ORDERED: ceFAZolin SODIUM 1 GM VIAL ONE ×2 (16:57→17:31)
--- NOTE | 2019-06-15 17:22 | NUR ---
medication administered, awaiting room number at this time.
--- NOTE | 2019-06-15 17:43 | NUR ---
Patient will be admitted to care [facility]. Admitted to Med Surg unit. Will go to room 114A. Belongings list completed. Complete and up to date summary report printed. SBAR report to be given at bedside with opportunity for questions.
--- NOTE | 2019-06-15 17:50 | NUR ---
ADMITTING NOTE PT RECEIVED VIA GURNEY BY GLORY HOLE TENDER, QUIQUE. PT NON VERBAL. ANTIBIOTICS IN FUSING. CALL LIGHT WITHIN REACH, BED IN LOW AND LOCKED POSITION WITH BED ALARM ON.
--- NOTE | 2019-06-15 18:00 | NUR ---
PICTURES TAKEN CHANGED PT AND LINEN, WOUND CARE DOWN ON SACRUM AND ABDOMEN. PT TOLERATED WELL.
--- NOTE | 2019-06-15 18:30 | NUR ---
ELEVATE BP/DR. FARRELL SPOKE W/ MD VIA PHONE, INFORMED MD PT BP 154/104 HR 99. NEW ORDERS RECEIVED FOR HYDRALAZINE. VERIFIED ORDER WITH READ BACK.
[2019-06-15] MEDS: hydrALAZINE HCL 20 MG/ML VIAL IVP PRN (19:00)
--- NOTE | 2019-06-15 19:00 | NUR ---
DR. BUD BECERRA AT BEDSIDE EXAMINING PT. INFORMED MD THAT IVF WERE STARTED AND HYDRALAZINE WAS ADMINISTERED FOR BP, BP WILL BE REASSESSED IN 30MIN. NEW ORDERS RECEIVED FOR PICC LINE, KEEP PT ON 2L NC, DO NOT USE G-TUBE. VERIFIED WITH READ BACK. MD WILL RECONCILE MEDS TO IVP.
[2019-06-15] MEDS: KCL 20 mEq in D5/0.45NS 1000mL 1,000 ML IV SCH (19:03)
--- NOTE | 2019-06-15 19:10 | NUR ---
OPENING NOTE: Patient is asleep at this time, AOx1, nonverbal, but responsive to light stimulation. No s/s of acute distress noted. 2L NC is attached and operating. Breathing is even and unlabored. IVF are infusing well. IV sites are patent, without s/s of infiltration or infection. Gtube is clamped at this time and non patent. MD aware. Erythema around Gtube site is covered without s/s of active bleeding. Seizure pads are on. Low air-loss mattress attached and operating. Bed alarm is on, bed locked in lowest position, call light with patient. Will continue to monitor.
--- NOTE | 2019-06-15 19:15 | NUR ---
CLOSING NOTE PT RESTING, NO ACUTE DISTRESS NOTED, BREATHING EVEN AND UNLABORED. PT ON 2L NC. IVF INFUSING WELL. CALL LIGHT WITHIN REACH, BED IN LOW AND LOCKED POSITION WITH BED ALARM ON. ALL NEEDS MET THROUGHOUT SHIFT. PT CARE ENDORSED TO SAFETY SPEC RNTRACIE.
[2019-06-15] MEDS ORDERED: ACETAMINOPHEN 650 MG SUPP.RECT RC PRN (19:30)
[2019-06-15] MEDS ORDERED: ONDANSETRON HCL 4 MG/2 ML VIAL IVP PRN (19:30)
[2019-06-15] MEDS ORDERED: LevALBUTEROL HCL 1.25 MG/0.5 ML *CONC.* VIAL.NEB (XOPENEX CONC.) INH ONE (19:45)
[2019-06-15] MEDS ORDERED: LevALBUTEROL HCL 1.25 MG/0.5 ML *CONC.* VIAL.NEB (XOPENEX CONC.) INH PRN (19:45)
[2019-06-15 20:26] LABS: INR 1.1 (0.80-1.20); PROTHROMBIN TIME 11.3 SECS (9.5-12.5)
[2019-06-15 20:40] VITALS: BP_SYST 146
--- NOTE | 2019-06-15 21:00 | NUR ---
ROUNDS: Patient is asleep at this time. Breathing is even and unlabored. Bed alarm is on, bed locked in lowest position, call light with patient. Will continue to monitor.
[2019-06-15] MEDS: PANTOPRAZOLE SODIUM 40 MG/VIAL (PROTONIX) IVP SCH (21:45)
[2019-06-15] MEDS: ENOXAPARIN SODIUM 40 MG/0.4 ML SYRINGE SUBCUT SCH (21:46)
[2019-06-15] MEDS: levETIRAcetam 500 MG in NS 100 ML IV SCH (23:29)
--- NOTE | 2019-06-15 23:30 | NUR ---
ROUNDS: Patient has eyes closed at the time. Breathing is even and unlabored. Bed alarm is on, bed locked in lowest position, call light with patient. Will continue to monitor.
[2019-06-16] VITALS (7 sets, daily range): BP systolic 124–143
[2019-06-16] MEDS: LevALBUTEROL HCL 1.25 MG/0.5 ML *CONC.* VIAL.NEB (XOPENEX CONC.) INH SCH ×4 (00:30→19:30)
--- NOTE | 2019-06-16 01:25 | NUR ---
ROUNDS/AGITATION: Patient has eyes closed but is grinding teeth. Signs of agitation noted. Administered PRN medication accordingly. No s/s of acute distress noted. Breathing is even and unlabored. Bed alarm is on, bed locked in lowest position, call light with patient. Will continue to monitor.
[2019-06-16] MEDS: CEFAZOLIN 1 GM IVPB PREMIX 50 ML IV SCH ×3 (01:34→17:37)
[2019-06-16] MEDS: LORazepam 2 MG/ML VIAL IVP PRN (01:39)
--- NOTE | 2019-06-16 03:33 | NUR ---
ROUNDS: Patient is asleep at this time. No longer displaying s/s of agitation. Breathing is even and unlabored. Bed alarm is on, bed locked in lowest position, call light with patient. Will continue to monitor.
--- NOTE | 2019-06-16 04:29 | NUR ---
CONSULTATION PAGED/CALLED Reason for Consultation: GTUBE REPLACE Person Who was Notified: LETTY Consulting Physician: LIVIER BRIONES TROUNG IS STAGE TECHNICIAN Human Services Instructor Specialty: Ordering Physician: BUD
--- NOTE | 2019-06-16 05:00 | NUR ---
CONSULTATION PAGED/CALLED Reason for Consultation: CELLULITIS OF ABDOMINAL WALL Person Who was Notified: LETTY Consulting Physician: AIDE Vehicle Dynamics Engineer Specialty: ID Ordering Physician: BUD
--- NOTE | 2019-06-16 05:25 | NUR ---
ROUNDS/BALJIT CARE: Patient is asleep at this time. Baljit care performed at this time with GROUND SUPPORT EQUIPMENT MECHANIC. Patient tolerated well. No longer displaying s/s of agitation. Breathing is even and unlabored. Bed alarm is on, bed locked in lowest position, call light with patient. Will continue to monitor.
--- NOTE | 2019-06-16 06:20 | NUR ---
CLOSING NOTE: Patient is asleep at this time, AOx1, nonverbal, but responsive to light stimulation. No s/s of acute distress noted. 2L NC is attached and operating. Breathing is even and unlabored. IVF are infusing well. IV sites are patent, without s/s of infiltration or infection. Gtube is clamped at this time and non patent. MD aware. Erythema around Gtube site is covered without s/s of active bleeding. Seizure pads are on. Low air-loss mattress attached and operating. All safety/fall precautions maintained throughout the shift. Will continue to monitor until endorsement of care to dayshift nurse.
[2019-06-16 06:54] LABS: CALCIUM 7.8 mg/dL (8.4-11.0); CREATININE 1.1 mg/dL (0.55-1.30); POTASSIUM 3.2 mmol/L (3.5-5.1)
[2019-06-16 07:06] LABS: BASOPHILS # (AUTO) 0.1 K/uL (0.0-0.2); BASOPHILS % (AUTO) 0.5 % (0.0-2.0); EOSINOPHILS # (AUTO) 0.4 K/uL (0.0-0.4); EOSINOPHILS % (AUTO) 3.8 % (0.0-4.0); HEMATOCRIT 41.1 % (36-54); HEMOGLOBIN 13.6 g/dL (14.0-18.0); LYMPHOCYTES % (AUTO) 20.9 % (20.5-51.5); MEAN CORPUSCULAR HEMOGLOBIN 30 pg (27-31); MEAN CORPUSCULAR HGB CONC 33 % (32-36); MEAN CORPUSCULAR VOLUME 89 fL (79.0-98.0); MONOCYTES # (AUTO) 0.7 K/uL (0.0-1.0); MONOCYTES % (AUTO) 7.4 % (1.7-9.3); NEUTROPHILS # (AUTO) 6.4 K/uL (1.8-7.7); NEUTROPHILS % (AUTO) 67.4 % (40.0-70.0); PLATELET COUNT (AUTO) 267 K/uL (130-430); RED CELL DISTRIBUTION WIDTH 14.7 % (9.0-15.0)
[2019-06-16 07:14] LABS: WHITE BLOOD COUNT (AUTO) 9.5 K/uL (4.8-10.8)
--- NOTE | 2019-06-16 07:37 | NUR ---
OPENING NOTE Patient resting in the bed. No acute distress. ON O2 2L/min via NC. HOB elevated. Skin warm and dry to touch. IV intact to LAC, no redness, no swelling, no drainage. On D5 1/2NS with KCl 20mEq at 75ml/hr, infusing well. GT is intact and clamped. Safety measure maintained. Call light within reached. Bed locked in low position, padded side rails up, bed alarm on. Will continue to monitor.
--- NOTE | 2019-06-16 08:00 | NUR ---
SEEN AND EXAMINED BY KENDRA WYATT Dr. assessed the GT site, with drainage and redness noted. Per Dr. Rodríguez will do the GT replacement tomorrow and prepare size 18 Fr for him tomorrow.
--- NOTE | 2019-06-16 08:58 | NUR ---
OFF UNIT FOR CT ABD/PELVIS VIA BED IN STABLE CONDITION.
--- NOTE | 2019-06-16 09:48 | NUR ---
BACK TO UNIT AFTER CT ABD/PELVIS IN STABLE CONDITION VIA BED. NOTED SL ON LEFT HAND WAS OUT, NO BLEEDING NOTED.
--- NOTE | 2019-06-16 09:50 | NUR ---
Nutrition Update Pasquale Scale 13 noted. Pt admitted for cellulitis of abd wall. Diet: N/A BMI: 24.5 kg/m2 RD to follow per nutrition care standards.
[2019-06-16] MEDS: levETIRAcetam 500 MG in NS 100 ML IV SCH ×2 (09:55→20:49)
[2019-06-16] MEDS: PANTOPRAZOLE SODIUM 40 MG/VIAL (PROTONIX) IVP SCH ×2 (09:55→20:42)
[2019-06-16] MEDS ORDERED: POTASSIUM CHLORIDE 40 MEQ in NS 250 ML IV ONE (10:30)
--- NOTE | 2019-06-16 10:35 | NUR ---
CALLED THE PATIENT'S BROTHER, PEREZ SCHWARTZ REGARDING THE CONSENT OD PICC LINE PLACEMENT, NO ANSWER, LEFT MESSAGE AND WAITED TO CALL BACK.
[2019-06-16] MEDS: KCL 20 mEq in D5/0.45NS 1000mL 1,000 ML IV SCH (10:36)
--- NOTE | 2019-06-16 11:38 | NUR ---
SEEN AND EXAMINED BY GARCÍA RUSSO WITH ORDER RECEIVED.
[2019-06-16] MEDS: FLUCONAZOLE 100 mg/ NS 50 ML IV SCH (13:23)
--- NOTE | 2019-06-16 13:40 | NUR ---
ROUND Patient resting in the bed. No acute distress. Continue on O2 2L/min via NC. HOB elevated. Safety measure maintained. Call light within reached. Bed locked in low position, padded side rails up, bed alarm on. Continue to monitor.
--- NOTE | 2019-06-16 15:11 | NUR ---
Dietitian Recommendations * Consider Jevity 1.5 at 60 ml/hr (goal rate), Emanuel BID, Free Water Flush: 200 ml Q6h via GT if/when medically appropriate Provides: 2320 kcal/day, 97 gm protein/day, and 1894 ml free water/day Meets: 93% of upper end of estimated caloric needs and 99% of lower end of estimated protein needs LP, RD Please refer to Nutrition Assessment for details. Addendum: 06/16/19 at [address] Amended: Links added.
--- NOTE | 2019-06-16 15:45 | NUR ---
ROUND Patient resting in the bed. No acute distress. Continue on O2 2L/min via NC. HOB elevated. IV intact, IVF infusing well. Safety measure maintained. Call light within reached. Bed locked in low position, padded side rails up, bed alarm on. Continue to monitor.
--- NOTE | 2019-06-16 18:10 | NUR ---
PICC LINE CONSENT Informed to Dr. Coelho, I called the patient's brother and left message but not call back yet for PICC line placement consent. Per Dr. Coelho, the patient no family even the chart with brother's name and the PICC line is needed. Dr. Coelho signed the PICC line consent.
[2019-06-16] MEDS ORDERED: POTASSIUM CHLORIDE 40 MEQ in 0.45% NS 250 ML IV ONE (18:30)
--- NOTE | 2019-06-16 18:55 | NUR ---
CLOSING NOTE Patient resting in the bed. No acute distress. On O2 2L/min via NC. HOB elevated. Skin warm and dry to touch. IV intact to LAC, no redness, no swelling, no drainage. On D5 1/2NS with KCl 20mEq at 75ml/hr, infusing well. GT is intact and clamped. All needs met. No seizure activity noted during shift. Safety measure maintained. Call light within reached. Bed locked in low position, padded side rails up, bed alarm on. Will endorse to night nurse.
--- NOTE | 2019-06-16 19:20 | NUR ---
OPENING NOTES RECEIVED PATIENT RESTING IN BED NONVERBAL. BREATHING UNLABORED ON 02 2L NC. IVF INFUSING WITH IV LINE INTACT AND PATENT. NO DISTRESS NOTED. SEIZURE PRECAUTIONS IN PLACED.
--- NOTE | 2019-06-16 19:25 | NUR ---
OPENING NOTES RECEIVED PATIENT IN BED RESTING. BREATHING UNLABORED ON 02 2L NC. IVF INFUSING ORDERED. BED IN LOWEST LOCKED POSITION WITH ALARM ON.
--- NOTE | 2019-06-16 19:35 | NUR ---
paged paged for Dr Coelho, dialed . s/w Radha.
[2019-06-16] MEDS: ENOXAPARIN SODIUM 40 MG/0.4 ML SYRINGE SUBCUT SCH (20:43)
--- NOTE | 2019-06-16 20:49 | NUR ---
MED PASS PATIENT DUE MEDICATIONS GIVEN. VITAL SIGNS STABLE. GT SITE DRESSING SOAKED. GT CARE DONE. NEW DRESSING APPLIED.
--- NOTE | 2019-06-17 00:45 | NUR ---
ROUNDS PATIENT RESTING IN BED. NO DISTRESS NOTED. VITAL SIGNS STABLE.
[2019-06-17] MEDS: LevALBUTEROL HCL 1.25 MG/0.5 ML *CONC.* VIAL.NEB (XOPENEX CONC.) INH SCH ×4 (01:04→20:18)
[2019-06-17] MEDS: CEFAZOLIN 1 GM IVPB PREMIX 50 ML IV SCH ×3 (02:41→17:33)
--- NOTE | 2019-06-17 04:00 | NUR ---
AM CARE INCONTINENCE CARE DONE. SACRAL WOUND DRESSING CHANGED.
[2019-06-17] MEDS: KCL 20 mEq in D5/0.45NS 1000mL 1,000 ML IV SCH ×3 (05:15→21:23)
[2019-06-17 06:18] LABS: CALCIUM 7.8 mg/dL (8.4-11.0); CREATININE 1.17 mg/dL (0.55-1.30); POTASSIUM 3.6 mmol/L (3.5-5.1)
[2019-06-17 06:20] LABS: BASOPHILS # (AUTO) 0.1 K/uL (0.0-0.2); BASOPHILS % (AUTO) 0.6 % (0.0-2.0); EOSINOPHILS # (AUTO) 0.4 K/uL (0.0-0.4); EOSINOPHILS % (AUTO) 4.3 % (0.0-4.0); HEMOGLOBIN 12.1 g/dL (14.0-18.0); LYMPHOCYTES # (AUTO) 1.9 K/uL (1.0-5.5); LYMPHOCYTES % (AUTO) 21.9 % (20.5-51.5); MEAN CORPUSCULAR HEMOGLOBIN 29 pg (27-31); MEAN CORPUSCULAR HGB CONC 33 % (32-36); MEAN CORPUSCULAR VOLUME 90 fL (79.0-98.0); MONOCYTES # (AUTO) 0.7 K/uL (0.0-1.0); MONOCYTES % (AUTO) 8.2 % (1.7-9.3); NEUTROPHILS # (AUTO) 5.6 K/uL (1.8-7.7); PLATELET COUNT (AUTO) 229 K/uL (130-430); RED BLOOD CELL COUNT(AUTO) 4.12 MIL/uL (4.2-6.2); RED CELL DISTRIBUTION WIDTH 14.4 % (9.0-15.0); WHITE BLOOD COUNT (AUTO) 8.6 K/uL (4.8-10.8)
--- NOTE | 2019-06-17 06:36 | NUR ---
CLOSING NOTES PATIENT RESTING IN BED. NO DISTRESS NOTED. IVF INFUSING ORDERED WITH IV LINE INTACT. PATIENT NEEDS ATTENDED. BED IN LOWEST LOCKED POSITION WITH BED ALARM ON. SEIZURE PRECAUTIONS IN PLACED.
--- NOTE | 2019-06-17 08:00 | NUR ---
received awake and in no signs of distress vss resp even and unlabored 02 at 2lnc.gtube site with drainage noted around site to have new tube put in by iv infusing at 75 hr sacral redness also noted.repositioned in bed.incontinent of urine and changed and repositioned.continue to monitor.
[2019-06-17] MEDS: PANTOPRAZOLE SODIUM 40 MG/VIAL (PROTONIX) IVP SCH ×2 (09:00→21:22)
[2019-06-17] MEDS: levETIRAcetam 500 MG in NS 100 ML IV SCH ×2 (09:02→21:22)
[2019-06-17] MEDS ORDERED: GASTROGRAFIN 120 ML ONE (09:54)
[2019-06-17 11:54] VITALS: BP_SYST 143
--- NOTE | 2019-06-17 13:00 | NUR ---
new feeding tube placed by to have picc line put in by picc nurse today.repositioned q2h continue to monitor.
[2019-06-17] MEDS: FLUCONAZOLE 100 mg/ NS 50 ML IV SCH (13:33)
[2019-06-17 15:40] VITALS: BP_SYST 152
--- NOTE | 2019-06-17 16:04 | NUR ---
WOUND EVALUATION: Wound Consult received from Dr. Coelho. Thank you, Dr. Coelho, for the consult. Patient received in a [place] Bed with an Isoflex NABILA mattress with low air loss therapy initiated, awake, nonverbal, nonresponsive to verbal commands. Patient is unable to turn in bed independently. Pasquale Score is a 14. Past Medical History: CVA, Seizure disorder, Chronic Encephalopathy, Dysphagia, G-tube placement. Recent Labs: WBC 8.6, RBC 4.12, hemoglobin 12.1, hematocrit 37.0, Na 132, BUN 18, creatinine 1.17, GFR 67, glucose 99, calcium 7.8, albumin 3.3, PTT 21.2. Microbiology: Blood culture results 2 in progress. MRSA screen results positive. Intrinsic factors that delay wound healing: CVA, Hypoalbuminemia, Chronic Encephalopathy. Extrinsic factors that delay wound healing: Immobility. Wound Assessment: 1. Right buttock: IAD with erythema and moisture associated skin damage/wound, present on admission. Open area has 100% dark red tissue, and barrier cream does not cover the open area completely. No odor, no drainage. Marina-site and surrounding tissue has blanchable red erythema and hypertrophic pink scar tissue. Site measures 3.0 cm x 2.0 cm. 2. Left buttock: IAD with erythema and scar tissue, present on admission. No odor, no drainage. Marina-site and surrounding tissue has blanchable red erythema and hypertrophic pink scar tissue. Recommend: Cleanse sites with normal saline. Apply Calmoseptine cream to sites. Apply small amount of Hydrogel to any open area not covered by Calmoseptine cream. Cover with Sacral foam dressing. Perform wound/site care daily, and as needed for dressing soiling or dislodgement. 3. Right buttock near Ischium: IAD with erythema, present on admission. Open area has red tissue, and barrier cream does not cover the open area completely. No odor, no drainage. Marina-site and surrounding tissue has blanchable red erythema. Site measures 8.5 cm x 4.7 cm. Recommend: Cleanse involved areas with mild soap and water. Pat dry. Apply Calmoseptine cream to involved areas. 4. Left Lateral Foot/Malleolus: Blanchable red erythema. 5. Right Lateral Foot/Malleolus: Blanchable red erythema. 6. Left Heel: Blanchable red erythema. 7. Right Heel: Blanchable red erythema. Recommend: Offload feet/heels at all times. Assess sites q shift. 8. Scrotum: Erythema from IAD, present on admission. Recommend: Cleanse involved area with mild soap and water. Pat dry. Place Interdry AG cloth underneath Scrotum and pull Scrotum up off of bed by pulling Interdry AG cloth in between thighs. Apply antifungal powder to Scrotal area. Perform site care BID, and as needed for soiling. Change Interdry AG cloth q five days, and as needed for soiling. 9. Abdomen: G-tube exit site has erythema, dry, flaky skin, and MASD/maceration from G-tube leakage, present on admission. Recommend: Cleanse involved area with mild soap and water. Pat dry. Cut a slit into alginate dressing and slide underneath G-tube. Cover with drain pad. Apply Hydraguard to surrounding dry, flaky tissue, then apply Calmoseptine cream to erythematous/MASD areas. Perform site care daily. Also recommend: Reposition patient [id number] only every 2 hours with pillow support (place one pillow above and one pillow below right buttocks wounds, you should be able to slide your hand freely underneath buttocks). Off-load pressure areas with pillows for pressure re-distribution. Offload, elevate and float bilateral heels with one pillow under bottom extremity and one pillow between knees/ankles at all times. Perform skin care and monitor skin integrity Q shift. Use Calmoseptine cream on buttocks and other moisture susceptible areas QID and as needed for soiling. Maintain patient on a low air-loss mattress. Addendum: 06/18/19 at 0851 by Jigar Dye RN Addendum: Erythematous area in site 9 measured 10.5 cm x 14.8 cm.
[2019-06-17] MEDS: MUPIROCIN 2% TOPICAL OINTMENT 22 GM NS SCH ×2 (16:09→21:23)
[2019-06-17] MEDS ORDERED: MENTHOL/ZINC OXIDE 113 GM OINT. TP PRN (16:45)
--- NOTE | 2019-06-17 18:36 | NUR ---
seen by wound care nurse and orders placed for wound care to abdomen and sacral area.picc line placed rt upper arm.no signs of discomfort noted.repositioned in bed.vss.tele sr iv infusing at 75 hr,02 at 2l nc and resp unlabored.placed on iso for mrsa.continue to monitor
--- NOTE | 2019-06-17 19:15 | NUR ---
OPENING NOTE Bedside report received from dayshift nurse. Patient received lying in bed sleeping. No s/s of acute distress noted. Breathing even and unlabored, HOB raised, nasal canula attached properly, on 2L of oxygen. IVF infusing well. IV site is patent, no signs of infiltration or infection noted. Bed alarm on. Bed is locked and at lowest position. Will continue to monitor.
[2019-06-17 20:00] VITALS: BP_SYST 120
--- NOTE | 2019-06-17 20:00 | NUR ---
PAGED DOCTOR PAGED DOCTOR NELANG
--- NOTE | 2019-06-17 20:30 | NUR ---
PAGED PAGED DOCTOR TROUNG FOR ORDERS
--- NOTE | 2019-06-17 20:47 | NUR ---
SPOKE WITH DR THOMAS RE: DIET Spoke with Dr. Thomas, ordered to start tube feeding using touch up painter hand's recommendation, Jevity 1.5 @60, Emanuel BID, H20 flush 200 ml Q6h, check residual Q6H. Will carry out orders.
[2019-06-17] MEDS: NYSTATIN 15 GM TOPICAL POWDER TP SCH (21:23)
[2019-06-17] MEDS: ENOXAPARIN SODIUM 40 MG/0.4 ML SYRINGE SUBCUT SCH (21:25)
--- NOTE | 2019-06-17 23:00 | NUR ---
PERICARE Patient cleaned at this time by RN and MEDICAL CLAIMS ASSISTANT. Patient tolerated well. IVF and GTUBE infusing well. All needs met. Bed alarm on. Will continue to monitor.
[2019-06-18 00:04] VITALS: BP_SYST 155
[2019-06-18] MEDS: CEFAZOLIN 1 GM IVPB PREMIX 50 ML IV SCH ×3 (00:59→17:05)
--- NOTE | 2019-06-18 01:00 | NUR ---
ROUNDS Patient asleep. No signs of discomfort noted. Chest rise and fall even bilaterally. Bed alarm on. Will continue to monitor.
[2019-06-18] MEDS: LevALBUTEROL HCL 1.25 MG/0.5 ML *CONC.* VIAL.NEB (XOPENEX CONC.) INH SCH ×4 (01:18→20:24)
--- NOTE | 2019-06-18 03:00 | NUR ---
ROUNDS Patient sleeping at this time. NO s/s of acute distress noted. Breathing even and unlabored. Will continue to monitor.
--- NOTE | 2019-06-18 05:00 | NUR ---
PERICARE Patient cleaned by MACHINE OPERATOR HELPER and RN at this time. Patient tolerated well. HOB raised. IVF and GTUBE infusing well. Bed alarm on. Will continue to monitor.
--- NOTE | 2019-06-18 06:49 | NUR ---
CLOSING NOTES Patient in bed sleeping at this time. No s/s of acute distress noted. Breathing even and unlabored. HOB raised, nasal canula attached properly. IVF and GTUBE infusing well. IV site is patent, no signs of infiltration or infection noted. All needs met throughout shift. Fall, safety, and seizure precautions maintained throughout shift. Will continue to monitor until patient care is endorsed to oncoming dayshift nurse.
[2019-06-18 07:26] LABS: BASOPHILS % (AUTO) 0.6 % (0.0-2.0); EOSINOPHILS # (AUTO) 0.6 K/uL (0.0-0.4); EOSINOPHILS % (AUTO) 8.5 % (0.0-4.0); HEMATOCRIT 35.7 % (36-54); HEMOGLOBIN 11.7 g/dL (14.0-18.0); LYMPHOCYTES # (AUTO) 1.6 K/uL (1.0-5.5); LYMPHOCYTES % (AUTO) 22.7 % (20.5-51.5); MEAN CORPUSCULAR HEMOGLOBIN 30 pg (27-31); MEAN CORPUSCULAR HGB CONC 33 % (32-36); MEAN CORPUSCULAR VOLUME 90 fL (79.0-98.0); MONOCYTES # (AUTO) 0.6 K/uL (0.0-1.0); NEUTROPHILS # (AUTO) 4.2 K/uL (1.8-7.7); NEUTROPHILS % (AUTO) 60.2 % (40.0-70.0); PLATELET COUNT (AUTO) 218 K/uL (130-430); RED BLOOD CELL COUNT(AUTO) 3.95 MIL/uL (4.2-6.2); RED CELL DISTRIBUTION WIDTH 14.3 % (9.0-15.0); WHITE BLOOD COUNT (AUTO) 7.1 K/uL (4.8-10.8)
[2019-06-18 07:44] LABS: ALBUMIN 2.9 g/dL (3.4-4.8); CALCIUM 7.9 mg/dL (8.4-11.0); CREATININE 1.11 mg/dL (0.55-1.30); TOTAL BILIRUBIN 0.3 mg/dL (0.0-1.0)
--- NOTE | 2019-06-18 07:50 | NUR ---
AM NOTES RECEIVED PT IN BED. PT SLEEPING EYES CLOSED. NO S/S OF PAIN OR SOB NOTED. NO S/S OF RES DISTRESS NOTED. RES EVEN AND UNLABORED HOB ELEVATED. VITALS STABLE. G TUBE FEEDING CONTINUE ORDERED. NO RESIDUAL NOTED. PT SEEN BY DR GOMES.IV SITE PATENT. NO S/S OF INFILTRATION NOTED.HOB ELEVATED. SAFETY/ FALL / ASPIRATIONS PRECAUTIONS IN PLACE/ MAINTAINED. REPOSITIONED WITH PILLOW. WILL CONTINUE TO MONITOR
[2019-06-18 08:00] VITALS: BP_SYST 146
[2019-06-18] MEDS: levETIRAcetam 500 MG in NS 100 ML IV SCH ×2 (09:52→20:49)
[2019-06-18] MEDS: PANTOPRAZOLE SODIUM 40 MG/VIAL (PROTONIX) IVP SCH ×2 (09:52→20:48)
[2019-06-18] MEDS: NYSTATIN 15 GM TOPICAL POWDER TP SCH ×2 (10:03→21:00)
--- NOTE | 2019-06-18 10:30 | NUR ---
hygiene pt stable resting comfortably. picc line tj two lumen flushed well with good blood return. iv fluid and g tube feeding infusing well. pt tolerating well. pt cleaned with sales leader. melani care and wound care done. hob elevated. repositioned with pillow.will continue to monitor
[2019-06-18] MEDS: MUPIROCIN 2% TOPICAL OINTMENT 22 GM NS SCH ×2 (10:45→20:51)
--- NOTE | 2019-06-18 12:06 | NUR ---
Discharge Planning: DCP faxed pt referral to [facility] (f [phone] p [phone]) DCP to follow up Addendum: 06/18/19 at 1426 by Jazz Nava DP DCP lm for [facility] at [facility] (f [phone] p [phone]) DCP will follow up. Addendum: 06/18/19 at 1558 by Jazz Nava DP DCP spoke to [facility] (f [phone] p [phone]) patient can return to [facility]m [facility], she aware MRSA-[facility] no isolation needed.
--- NOTE | 2019-06-18 12:10 | NUR ---
rounds pt stable resting comfortably no s/s of pain or distress. noted. g tube flushed with 200 ml h20 as ordered no residual noted. g tube feeding infusing well. safety and fall precautions mainatined. repositioned with pillow. will continue to monitor
[2019-06-18 12:19] VITALS: BP_SYST 148
[2019-06-18] MEDS: FLUCONAZOLE 100 mg/ NS 50 ML IV SCH (12:45)
--- NOTE | 2019-06-18 15:00 | NUR ---
rounds pt stable resting comfortably no s/s of pain or distress. noted. res even and unlabored . g tube feeding continue. hob elevated. pt tolerating well. safety and fall precautions maintained. repositioned with pillow. will continue to monitor
[2019-06-18] MEDS: KCL 20 mEq in D5/0.45NS 1000mL 1,000 ML IV SCH (16:05)
[2019-06-18 16:22] VITALS: BP_SYST 152
--- NOTE | 2019-06-18 17:32 | NUR ---
rounds pt stable resting comfortably no s/s of pain or distress. noted. res even and unlabored . g tube feeding continue. 200 ml h2o flush given as ordered. no residual noted. hob elevated. pt tolerating well. safety and fall precautions maintained. repositioned with pillow. will continue to monitor
[2019-06-18] MEDS: VANCOMYCIN HCL 1 GM/NS PREMIX 250 ML IV SCH (17:59)
--- NOTE | 2019-06-18 18:27 | NUR ---
closing notes pt stable resting comfortably no s/s of pain or distress. noted. res even and unlabored . g tube feeding continue. pt tolerating well. due antibiotics given as ordered. no adverse reaction noted . hob elevated. pt tolerating well. safety and fall precautions maintained. repositioned with pillow. will continue to monitor until inverted block operator endorsement
--- NOTE | 2019-06-18 19:15 | NUR ---
closing notes pt stable not in acute distress. report given to retail shift leader nurse
--- NOTE | 2019-06-18 19:30 | NUR ---
RECEIVED BEDSIDE REPORT FROM 7AM RN. PT W/ A NEW AND IN USE PICC LINE W/ IVF INFUSION, ON O2 2L N/C, RESP REG NON-LABORED. G-TUBE W/ JEVITY 1.5 @60 ML/HR. PT IN NAD.
[2019-06-18 20:00] VITALS: BP_SYST 139
[2019-06-18] MEDS: ENOXAPARIN SODIUM 40 MG/0.4 ML SYRINGE SUBCUT SCH (20:51)
--- NOTE | 2019-06-18 22:00 | NUR ---
MED PASS, TURNED W/ DIFFICULTY, & MADE COMFORTABLE. IVF AND IV MEDS INFUSING VIA PUMP. PEG TUBE FLUSHED W/ 200ML WATER PER ORDERS. PT RESTING IN NAD, NO SEIZURE ACTIVITY NOTED SO FAR THIS SHIFT.
[2019-06-19] VITALS (8 sets, daily range): BP systolic 139–164
[2019-06-19] MEDS: LORazepam 2 MG/ML VIAL IVP PRN (00:12)
[2019-06-19] MEDS: hydrALAZINE HCL 20 MG/ML VIAL IVP PRN ×2 (00:13→09:16)
--- NOTE | 2019-06-19 00:20 | NUR ---
PATIENT W/ INCREASED BP 158/98, HR 110. PATIENT MEDICATED FOR INCREASED BP, AND AGITATED STATE, W/ UNUSUAL VERBAL SOUNDS. ATIVAN 1 MG AND HYDRALAZINE 10MG IVP GIVEN VIA PIC LINE. WILL RE-ASSESS FOR MED EFFECTIVENESS.
[2019-06-19] MEDS: CEFAZOLIN 1 GM IVPB PREMIX 50 ML IV SCH ×3 (00:23→16:54)
[2019-06-19] MEDS: LevALBUTEROL HCL 1.25 MG/0.5 ML *CONC.* VIAL.NEB (XOPENEX CONC.) INH SCH ×4 (00:32→20:09)
--- NOTE | 2019-06-19 01:00 | NUR ---
RESP THERAPIST IN ROOM. PT RECEIVED RESP TX SCHEDULED. TOLERATED WELL. BP IMPROVED 143/92, PT CALMER.
--- NOTE | 2019-06-19 01:20 | NUR ---
POST RESP TX BP 138/87, HR 88, O2 SAT 98%. RESTING W/O S/S OF DISTRESS, NO NOTED SEIZURE ACTIVITY. ATIVAN AND HYDRALAZINE MEDS EFFECTIVE.
--- NOTE | 2019-06-19 03:00 | NUR ---
EXTERNAL ABD CELLULITIS BALJIT G- TUBE, CLEANSED W/ NS, DRESSED W/ HYDROGEL/NYSTAT, COVERED 4X4, PEG TUBE FLUSHED W/ 200ML NS.
--- NOTE | 2019-06-19 05:30 | NUR ---
DR FRITZ, [facility] ROUNDED GAVE ORDERS FOR CASE MANAGEMENT TO BEGIN D/C PLANNING, PATIENT TO RETURN TO SNF.
--- NOTE | 2019-06-19 05:35 | NUR ---
DIRECTOR OF STUDENT FINANCIAL SERVICES AWARE, ORDERS ENTERED.
--- NOTE | 2019-06-19 05:56 | NUR ---
AM CARE DONE, LINEN CHANGE, DSG CHANGE DONE TO SACRAL WOUND, CLEANSED W/ NS, HYDROGEL, AND COVERED W/ CALMOSEPTINE APPLE SHAPED DRESSING. PATIENT TOLERATED WELL, REPOSITIONED, COMFORT MEASURES APPLIED.
[2019-06-19] MEDS: VANCOMYCIN HCL 1 GM/NS PREMIX 250 ML IV SCH ×2 (06:34→17:46)
--- NOTE | 2019-06-19 07:20 | NUR ---
REPORT GIVEN TO CAR MILES.
[2019-06-19] MEDS: KCL 20 mEq in D5/0.45NS 1000mL 1,000 ML IV SCH (07:52)
[2019-06-19] MEDS ORDERED: LORazepam 2 MG/ML VIAL IV PRN (08:15)
[2019-06-19] MEDS ORDERED: ONDANSETRON 4 MG ODT TAB PO PRN (08:15)
[2019-06-19] MEDS ORDERED: ALBUTEROL SULFATE 0.083% 2.5 MG/3 ML VIAL.NEB INH PRN (08:15)
[2019-06-19] MEDS ORDERED: ACETAMINOPHEN 325 MG TABLET PO PRN (08:15)
[2019-06-19] MEDS ORDERED: MILK OF MAGNESIA 30 ML UDC PO PRN (08:15)
[2019-06-19] MEDS ORDERED: LORazepam 2 MG/ML VIAL IVP PRN (08:29)
[2019-06-19] MEDS ORDERED: ACETAMINOPHEN 325 MG TABLET GT PRN (08:32)
[2019-06-19] MEDS ORDERED: ONDANSETRON 4 MG ODT TAB GT PRN (08:32)
[2019-06-19] MEDS ORDERED: MILK OF MAGNESIA 30 ML UDC GT PRN (08:32)
[2019-06-19] MEDS: levETIRAcetam 500 MG in NS 100 ML IV SCH (08:56)
[2019-06-19] MEDS ORDERED: PROTEIN HYDROLYSATE MILK GT SCH (09:00)
[2019-06-19] MEDS: clonazePAM 0.5 MG TABLET GT SCH ×2 (09:13→21:00)
[2019-06-19] MEDS: BISACODYL 10 MG/SUPPOSITORY RC PRN (09:13)
[2019-06-19] MEDS: LACTULOSE 20 GM/30 ML UDC GT SCH (09:14)
[2019-06-19] MEDS: levETIRAcetam 500 MG TABLET GT SCH ×2 (09:14→21:00)
[2019-06-19] MEDS: DOCUSATE SODIUM 100 MG/10 ML UDC GT PRN (09:15)
[2019-06-19] MEDS: FAMOTIDINE 20 MG TABLET GT SCH ×2 (09:15→21:00)
[2019-06-19] MEDS: NYSTATIN 15 GM TOPICAL POWDER TP SCH ×2 (09:17→21:13)
[2019-06-19] MEDS: MUPIROCIN 2% TOPICAL OINTMENT 22 GM NS SCH ×2 (09:19→21:06)
--- NOTE | 2019-06-19 11:43 | NUR ---
Case mgt: I confirmed with Arpita at [facility] that bed #222A is still available. Per Arpita, bed is available--I s/w viscose cellar charge hand Chona to request her to call Dr. Grossman with today's CXR report to see if he is agreeable to discharge pt back to SNF today and there is bed available at [facility]. [facility]--[facility]
--- NOTE | 2019-06-19 12:03 | NUR ---
Do not discharge per MD Landeros. Thor Pacheco RN
[2019-06-19] MEDS: FLUCONAZOLE 100 mg/ NS 50 ML IV SCH (12:17)
--- NOTE | 2019-06-19 18:42 | NUR ---
Nutrition F/U RD reviewed pt's current EMR record including diet Hx, physician notes, nursing notes, pertinent labs/meds/procedures, care trends, and care activity. Admission Dx: Cellulitis of abd wall Pt also found w/ leukocytosis, GT dysfunction per physician notes PMH: CVA, seizure disorder, HTN, chronic encephalopathy, dementia per physician notes Pertinent Medical Info: Pt had GT placement 06/17/19 per EMR Current Diet Order/Nutrition Support: Jevity 1.5 at 60 ml/hr, Emanuel BID, Free Water Flush: 200 ml Q6h via GT Subjective Info: Pt noted as lethargic w/ cognitive limitations per EMR. RD called pt's primary RN who reported that pt has been tolerating TF well today, however, abd is distended, and pt was provided w/ laxatives to help. Current TF order is adequate/appropriate at this time. Skin Integrity Comment: Pasquale scale: 10; Car Supervisor note 06/17/19 reviewed Estimated Energy Expenditure (kcals/day) 5635-8814 kcal/day (MSJ x 1.2-1.5 CBW for wound healing, infection) Estimated Protein Required (g/day) 98-123 gm/day (1.2-1.5 gm/kg CBW for wound healing, infection) Estimated Fluid Required (l/day) 2-2.5 L/day (1 ml/kcal/day for maintenance) Problem/Etiology/Signs/Symptoms Increased nutritional needs related to metabolic demands as evidenced by estimated nutritional requirements for wound healing and infection. *ongoing Expected Outcomes/Goals - Monitor provision of EN support w/ goal of pt meeting at least 80% of estimated nutritional needs, labs trending WNL, normal GI function, and skin integrity/wt maintenance Dietitian Recommendations * Recommend continuing Jevity 1.5 at 60 ml/hr (goal rate), Emanuel BID, Free Water Flush: 200 ml Q6h via GT Provides: 2320 kcal/day, 97 gm protein/day, and 1894 ml free water/day Meets: 93% of upper end of estimated caloric needs and 99% of lower end of estimated protein needs Follow Up High Risk: F/U in 2-3 days Addendum: 06/19/19 at [address] CORRECTION: Follow Up Moderate Risk: F/U in 3-5 days
--- NOTE | 2019-06-19 18:48 | NUR ---
Dietitian Recommendations * Recommend continuing Jevity 1.5 at 60 ml/hr (goal rate), Emanuel BID, Free Water Flush: 200 ml Q6h via GT Provides: 2320 kcal/day, 97 gm protein/day, and 1894 ml free water/day Meets: 93% of upper end of estimated caloric needs and 99% of lower end of estimated protein needs LP, RD Please refer to Nutrition F/U for details.
--- NOTE | 2019-06-19 19:10 | NUR ---
Received report from CAR Mcrae. Pt in NAD.
[2019-06-19] MEDS: ENOXAPARIN SODIUM 40 MG/0.4 ML SYRINGE SUBCUT SCH (21:04)
--- NOTE | 2019-06-19 23:15 | NUR ---
Med pass done, via peg. Peg w/ positive 200ml flush. TF infusing as per orders, IVF infusing as per orders, antibiotics given.
[2019-06-20] VITALS (7 sets, daily range): BP systolic 122–152
[2019-06-20] MEDS: KCL 20 mEq in D5/0.45NS 1000mL 1,000 ML IV SCH ×2 (01:39→18:19)
[2019-06-20] MEDS: CEFAZOLIN 1 GM IVPB PREMIX 50 ML IV SCH ×3 (01:39→16:29)
[2019-06-20] MEDS: LevALBUTEROL HCL 1.25 MG/0.5 ML *CONC.* VIAL.NEB (XOPENEX CONC.) INH SCH ×4 (01:55→19:38)
--- NOTE | 2019-06-20 03:00 | NUR ---
AM CARE DONE, LINEN CHANGE, PT TOLERATED WELL. NAD NOTED.
--- NOTE | 2019-06-20 05:40 | NUR ---
PT W/ INCREASED BP 142/98, HYDRALAZINE GIVEN FOR INCREASED BP.
[2019-06-20] MEDS: VANCOMYCIN HCL 1 GM/NS PREMIX 250 ML IV SCH (05:41)
[2019-06-20] MEDS: hydrALAZINE HCL 20 MG/ML VIAL IVP PRN (05:48)
--- NOTE | 2019-06-20 06:10 | NUR ---
BP IMPROVED 122/74, IV VANCO INFUSING PER ORDERS.
[2019-06-20 06:55] LABS: BASOPHILS # (AUTO) 0.1 K/uL (0.0-0.2); BASOPHILS % (AUTO) 0.8 % (0.0-2.0); EOSINOPHILS # (AUTO) 0.8 K/uL (0.0-0.4); HEMATOCRIT 35.1 % (36-54); HEMOGLOBIN 11.3 g/dL (14.0-18.0); LYMPHOCYTES # (AUTO) 1.3 K/uL (1.0-5.5); LYMPHOCYTES % (AUTO) 19.4 % (20.5-51.5); MEAN CORPUSCULAR HEMOGLOBIN 29 pg (27-31); MEAN CORPUSCULAR HGB CONC 32 % (32-36); MEAN CORPUSCULAR VOLUME 90 fL (79.0-98.0); MONOCYTES # (AUTO) 0.5 K/uL (0.0-1.0); MONOCYTES % (AUTO) 7.5 % (1.7-9.3); NEUTROPHILS # (AUTO) 4.2 K/uL (1.8-7.7); NEUTROPHILS % (AUTO) 60.3 % (40.0-70.0); PLATELET COUNT (AUTO) 235 K/uL (130-430); RED BLOOD CELL COUNT(AUTO) 3.88 MIL/uL (4.2-6.2); RED CELL DISTRIBUTION WIDTH 14.4 % (9.0-15.0); WHITE BLOOD COUNT (AUTO) 6.9 K/uL (4.8-10.8)
--- NOTE | 2019-06-20 07:10 | NUR ---
REPORT GIVEN TO CAR MILES.
[2019-06-20 07:17] LABS: CALCIUM 7.7 mg/dL (8.4-11.0); CREATININE 1.06 mg/dL (0.55-1.30)
[2019-06-20] MEDS: FAMOTIDINE 20 MG TABLET GT SCH ×2 (10:08→21:53)
[2019-06-20] MEDS: clonazePAM 0.5 MG TABLET GT SCH ×2 (10:08→21:54)
[2019-06-20] MEDS: LACTULOSE 20 GM/30 ML UDC GT SCH (10:08)
[2019-06-20] MEDS: levETIRAcetam 500 MG TABLET GT SCH ×2 (10:08→21:57)
[2019-06-20] MEDS: MUPIROCIN 2% TOPICAL OINTMENT 22 GM NS SCH ×2 (10:09→21:57)
[2019-06-20] MEDS: NYSTATIN 15 GM TOPICAL POWDER TP SCH ×2 (10:11→21:52)
[2019-06-20] MEDS: FLUCONAZOLE 100 mg/ NS 50 ML IV SCH (13:42)
[2019-06-20] MEDS: BISACODYL 10 MG/SUPPOSITORY RC PRN (16:34)
[2019-06-20] MEDS: DOCUSATE SODIUM 100 MG/10 ML UDC GT PRN (17:58)
[2019-06-20] MEDS: VANCOMYCIN HCL 1,250 MG in NS 250 ML IV SCH (17:58)
--- NOTE | 2019-06-20 19:12 | NUR ---
Handoff with PALMER Boo. Thor Pacheco RN.
--- NOTE | 2019-06-20 19:30 | NUR ---
opening note received report from AM nurse, pt in bed, no signs of distress noted, on room air, hob elevated, call light within reach. all safety measures in place, will continue to monitor.
[2019-06-20] MEDS: ENOXAPARIN SODIUM 40 MG/0.4 ML SYRINGE SUBCUT SCH (21:58)
--- NOTE | 2019-06-20 22:15 | NUR ---
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 Pt had a large loose BM, provided hygiene care. Wound care provided to sacrum, clean, foam dressing in place. Repostioned pt with pillows in place. Medications given as ordered. Pt tolerated. HOB elevated, Pt tolerating Gtube feeding. Call light within reach, bed in lowest position. All needs met at this time.
[2019-06-21 00:40] VITALS: BP_SYST 141
[2019-06-21] MEDS: CEFAZOLIN 1 GM IVPB PREMIX 50 ML IV SCH ×3 (00:48→16:16)
[2019-06-21] MEDS: LevALBUTEROL HCL 1.25 MG/0.5 ML *CONC.* VIAL.NEB (XOPENEX CONC.) INH SCH ×4 (01:25→20:29)
--- NOTE | 2019-06-21 03:40 | NUR ---
Rounds In bed with eyes closed, HoB elevated. O2 2LPM NC in place. Pt tolerating tube feeding. Safety measures in place. All needs met at this time.
[2019-06-21] MEDS: VANCOMYCIN HCL 1,250 MG in NS 250 ML IV SCH ×2 (05:44→17:24)
[2019-06-21 06:19] LABS: BASOPHILS # (AUTO) 0.1 K/uL (0.0-0.2); BASOPHILS % (AUTO) 0.9 % (0.0-2.0); EOSINOPHILS # (AUTO) 0.9 K/uL (0.0-0.4); EOSINOPHILS % (AUTO) 14.6 % (0.0-4.0); HEMATOCRIT 37.3 % (36-54); HEMOGLOBIN 12.1 g/dL (14.0-18.0); LYMPHOCYTES # (AUTO) 1.6 K/uL (1.0-5.5); LYMPHOCYTES % (AUTO) 24.7 % (20.5-51.5); MEAN CORPUSCULAR HEMOGLOBIN 29 pg (27-31); MEAN CORPUSCULAR HGB CONC 33 % (32-36); MEAN CORPUSCULAR VOLUME 90 fL (79.0-98.0); MONOCYTES # (AUTO) 0.4 K/uL (0.0-1.0); MONOCYTES % (AUTO) 6.7 % (1.7-9.3); NEUTROPHILS # (AUTO) 3.4 K/uL (1.8-7.7); NEUTROPHILS % (AUTO) 53.1 % (40.0-70.0); PLATELET COUNT (AUTO) 235 K/uL (130-430); RED BLOOD CELL COUNT(AUTO) 4.17 MIL/uL (4.2-6.2); RED CELL DISTRIBUTION WIDTH 14.2 % (9.0-15.0); WHITE BLOOD COUNT (AUTO) 6.5 K/uL (4.8-10.8)
--- NOTE | 2019-06-21 06:39 | NUR ---
CLOSING NOTE PT IN BED, RESTING WITH EYES CLOSED. RESPIRATIONS EVEN AND UNLABORED ON O2 NC 2LPM, TOLERATING TUBE FEEDING, IV ANTIBIOTICS RUNNING AND PT TOLERATING. FREE WATER FLUSH 200ML GIVEN AND TOLERATED, GTUBE REMAINS PATENT AND INTACT.HOB ELEVATED, CALL LIGHT WITHIN REACH, SAFETY MEASURES REMAIN IN PLACE. ALL NEEDS MET THROUGHOUT SHIFT. WILL CONTINUE TO MONITOR UNTIL ENDORSED CARE TO AM NURSE.
[2019-06-21 07:05] LABS: ALBUMIN 2.8 g/dL (3.4-4.8); CREATININE 1.03 mg/dL (0.55-1.30); POTASSIUM 4.3 mmol/L (3.5-5.1); TOTAL BILIRUBIN 0.2 mg/dL (0.0-1.0)
[2019-06-21 08:00] VITALS: BP_SYST 149
--- NOTE | 2019-06-21 08:00 | NUR ---
INITIAL NOTES Asleep in bed, arousable by light stimuli. Nonverbal. No sign of pain. No sign of shortness of breath on 2 liters of oxygen support via nasal cannula. IVF infusing well. PICC line on right upper arm patent and intact, no blood return. Tube feeding infusing well, no residual. Redness and maceration around Gtube site noted. Seen by Dr. Rodríguez, aware of redness and maceration on Gtube site. Oral care done. Incontinent of urine, cleaned and repositioned. Fall and safety checks done. Will continue to monitor.
[2019-06-21] MEDS: LACTULOSE 20 GM/30 ML UDC GT SCH (08:12)
[2019-06-21] MEDS: levETIRAcetam 500 MG TABLET GT SCH ×2 (08:13→20:42)
[2019-06-21] MEDS: FAMOTIDINE 20 MG TABLET GT SCH ×2 (08:13→20:42)
[2019-06-21] MEDS: MUPIROCIN 2% TOPICAL OINTMENT 22 GM NS SCH ×2 (08:13→20:43)
[2019-06-21] MEDS: clonazePAM 0.5 MG TABLET GT SCH ×2 (08:13→20:42)
[2019-06-21] MEDS: NYSTATIN 15 GM TOPICAL POWDER TP SCH ×2 (08:14→20:42)
--- NOTE | 2019-06-21 10:18 | NUR ---
ROUNDS Asleep in bed. No sign of SOB on oxygen therapy. Tolerating continuos feeding. No sign of pain. Repositioned. Fall and safety checks in place. Will continue to monitor.
--- NOTE | 2019-06-21 10:48 | NUR ---
Discharge Planning: DCP faxed pt referral to [facility] [place] (f [phone] p [phone]) DCP to follow up Addendum: 06/21/19 at 1621 by Jazz Nava DP Per CM patient will be accepted, DCP arranged transportation on Will Call with [facility] ([phone]) nurse made aware. DCP let [facility] [place] (f [phone] p [phone]) aware to call nurse station.
[2019-06-21] MEDS: FLUCONAZOLE 100 mg/ NS 50 ML IV SCH (11:20)
[2019-06-21 12:00] VITALS: BP_SYST 143
--- NOTE | 2019-06-21 12:10 | NUR ---
ROUNDS Resting in bed. No sign of distress. Still on oxygen therapy. Tolerating continuos feeding. Incontinent of urine, cleaned. Gtube site dressing change done. Repositioned. Fall and safety checks done. Will continue to monitor.
--- NOTE | 2019-06-21 14:24 | NUR ---
ROUNDS Resting in bed. No sign of distress. On oxygen therapy. Tolerating continuos feeding. Safety checks done. Will continue to monitor.
[2019-06-21] MEDS: KCL 20 mEq in D5/0.45NS 1000mL 1,000 ML IV SCH (15:14)
--- NOTE | 2019-06-21 16:48 | NUR ---
ROUNDS Resting in bed. No sign of distress. Still on oxygen support. Tolerating continuos feeding. IVF infusing well. Incontinent of urine, cleaned and repositioned. Safety checks done. Will continue to monitor.
[2019-06-21 17:18] VITALS: BP_SYST 136
--- NOTE | 2019-06-21 17:25 | NUR ---
[facility] SET ON WILL CALL
[2019-06-21 17:50] VITALS: BP_SYST 136
--- NOTE | 2019-06-21 19:23 | NUR ---
CLOSING NOTES Asleep in bed. No sign of SOB on 2 liters of oxygen. No sign of pain. Tolerated continuos feeding. All needs met throughout shift. Fall and safety checks done. Will endorse to night nurse.
--- NOTE | 2019-06-21 19:38 | NUR ---
OPENING NOTE RECEIVED REPORT FROM ARIES RN, PATIENT RESTING IN BED, NO SIGNS OF ACUTE DISTRESS, EVEN AND UNLABORED BREATHING ON 2L NC, PATIENT IS NONVERBAL, REORIENTED PATIENT TO PERSON, PLACE, TIME AND EVENT, PICC TO RIGHT UPPER ARM INTACT AND INFUSING SCHEDULED IV FLUIDS AND ANTIBIOTIC MEDICATION, PATENT/BENIGN, G-TUBE IN PLACE, CURRENTLY CLAMPED, 0 RESIDUAL NOTED, DRESSED AND PREPARED PATIENT FOR DC. SAFETY AND FALL PRECAUTIONS IN PLACE, BED LOCKED AND IN LOWEST POSITION, BED ALARM ON, ASPIRATION AND SEIZURE PRECAUTIONS IN PLACE, CALL LIGHT WITH PATIENT, WILL CONTINUE TO MONITOR.
[2019-06-21 20:00] VITALS: BP_SYST 144
--- NOTE | 2019-06-21 20:00 | NUR ---
Spoke with Family Spoke with patient's brother Homero Aguilar over the phone regarding patient's discharge status. Family contents transfer to [facility].
[2019-06-21] MEDS: ENOXAPARIN SODIUM 40 MG/0.4 ML SYRINGE SUBCUT SCH (20:43)
--- NOTE | 2019-06-21 21:18 | NUR ---
PT TRANSFERRED Transfer packet with Transfer Orders and Medication Reconciliation form given to EMT with report. Exit care provided. [facility] ID band removed, replaced with ID band with pt's name and . picc to right upper arm saline locked, G-tube clamped. All belongings sent with patient. Patient left floor via gurney escorted by EMT in no distress.
== END 2019-06-21 21:20 | DRG 394 ==
LOC: SED 12:34 → SMU 16:35 → STU 19:50
PROVIDERS: ADMIT Family Medicine; ATTEND Family Medicine
PROC: 0D20XUZ Change Feeding Device in Upper Intestinal Tract, External Approach (ICD-10-PCS; principal; 2019-06-17)
PROC: 02HV33Z Insertion of Infusion Device into Superior Vena Cava, Percutaneous Approach (ICD-10-PCS; 2019-06-17)
PROC: B548ZZA Ultrasonography of Superior Vena Cava, Guidance (ICD-10-PCS; 2019-06-17)
DX: K94.22 Gastrostomy infection (principal); L03.311 Cellulitis of abdominal wall; J96.10 Chronic respiratory failure, unspecified whether with hypoxia or hypercapnia; G93.49 Other encephalopathy; K94.23 Gastrostomy malfunction; F03.90 Unspecified dementia, unspecified severity, without behavioral disturbance, psychotic disturbance, mood disturbance, and anxiety; G40.909 Epilepsy, unspecified, not intractable, without status epilepticus; I10 Essential (primary) hypertension; R13.10 Dysphagia, unspecified; M10.9 Gout, unspecified; G25.81 Restless legs syndrome; Y83.8 Other surgical procedures as the cause of abnormal reaction of the patient, or of later complication, without mention of misadventure at the time of the procedure; Y92.89 Other specified places as the place of occurrence of the external cause; Z86.73 Personal history of transient ischemic attack (TIA), and cerebral infarction without residual deficits; Z79.82 Long term (current) use of aspirin; Z79.899 Other long term (current) drug therapy; Z22.322 Carrier or suspected carrier of Methicillin resistant Staphylococcus aureus
CPT/HCPCS: 36415; 71045; 74240-TC; 80048; 80053; 80202-TC; 83605; 83735-TC; 84484; 85025; 85610-TC; 85730-TC; 87040-TC; 87081; 93005; 94640; 94760; 96365; 99284; 99285; C1751; C9113; G0378; J0360; J0690; J1450; J1650; J1953; J2060; J3370; J3480; J7050; J7612; Q9963

== ENCOUNTER 2019-12-13 21:24 | Emergency (ER) | payer OTHER, MEDICAID ==
[~2019-12-13] VITALS: Ht 182.9 cm; Wt 95.3 kg
[2019-12-13 21:24] VITALS: BP_SYST 123
[2019-12-13] MEDS ORDERED: GASTROGRAFIN 120 ML GT ONE (22:15)
[2019-12-13] MEDS ORDERED: GASTROGRAFIN 120 ML ONE (22:24)
[2019-12-13 23:59] VITALS: BP_SYST 139
== END 2019-12-13 23:57 | disposition home or self-care (01) ==
LOC: SED 21:24
DX: K94.23 Gastrostomy malfunction (principal); I11.0 Hypertensive heart disease with heart failure; G40.909 Epilepsy, unspecified, not intractable, without status epilepticus; G47.30 Sleep apnea, unspecified
CPT/HCPCS: 43762; 74240; 99284; Q9963